=== PATIENT | female | born 1945 | race Caucasian/White ===

== ENCOUNTER 2025-09-08 13:05 | Emergency (ER) | payer MEDICARE, BC, SELFPAY ==
[2025-09-08 13:20] VITALS: BP 125/52; PULSE 72; RESP 18; TEMP 36.5; O2SAT 98; BMI 20.7
--- NOTE | 2025-09-08 13:30 | XR_ITS ---
CLINICAL INDICATION: Chest Pain TECHNIQUE: XR chest 2V COMPARISON: Chest radiograph 10/25/2023 FINDINGS: The cardiomediastinal silhouette is within normal limits of size. Aortic atherosclerosis is present above and below the diaphragm.. Patchy retrocardiac opacification is visualized on the frontal view. There may be very small bilateral pleural effusions as well, blunting the posterior costophrenic sulci. No diffuse pulm edema pattern. No mass. No pneumothorax. Multifocal degenerative changes with otherwise no evidence for recent fracture or aggressive lesion. IMPRESSION: Left retrocardiac opacification could be due to aspiration or pneumonia. Possible very small bilateral pleural effusions. Short-term follow-up chest radiography or alternatively follow-up chest CT can be obtained for further evaluation. - This report was generated utilizing speech recognition software. -
--- NOTE | 2025-09-08 13:30 | EKG_ITS ---
[facility] Test Date: 2025-09-08 Pat Name: HERIBERTO BAH Department: Room: - Gender: Female Office Asst: : 1945 Requested By: Juaquin Hernandez (JERRI) Order Number: [id number] Reading MD: Juaquin Hernandez ([employer]IC[employer]ER) Measurements Intervals [place] Rate: 67 P: 38 AL: 149 QRS: -39 QRSD: 130 T: -3 QT: 404 QTc: 429 Interpretive Statements SINUS RHYTHM LEFT AXIS DEVIATION [QRS AXIS < -30] RIGHT BUNDLE BRANCH BLOCK [120+ ms QRS DURATION, UPRIGHT V1, 40+ ms S IN I/aVL/V4/V5/V6] MINIMAL VOLTAGE CRITERIA FOR LVH, CONSIDER NORMAL VARIANT [MEETS CRITERIA IN ONE OF: R(aVL), S(V1), R(V5), R(V5/V6)+S(V1)] Compared to ECG 12/18/2023 17:46:05 Left-axis deviation now present Right bundle-branch block now present Sinus bradycardia no longer present Intraventricular conduction delay no longer present Myocardial infarct finding no longer present /store/S0/[id number]/ecg/[id number].pdf
--- NOTE | 2025-09-08 13:30 | PD.EDRME ---
Rapid Medical Screening Exam RME Arrival date/time: 09/08/25 13:05 80-year-old female presents the emerged from today stating she was sent by Dr. Solares for low hemoglobin Chief Complaint: General Adult/Misc Complain Vital signs: Vital Signs Temperature 97.7 F 09/08/25 13:20 Pulse Rate 72 09/08/25 13:20 Respiratory Rate 18 09/08/25 13:20 Blood Pressure 125/52 L 09/08/25 13:20 Pulse Oximetry (%) 98 09/08/25 13:20 Oxygen Delivery Method Room Air 09/08/25 13:20 Vital signs reviewed by provider: Yes Exam: Clinically patient well-appearing does not appear ill or toxic Patient does appear to be pale consistent with low hemoglobin Clinical Impression: Lab work imaging ordered
[2025-09-08 14:30] LABS: INR 1.0 (0.9-1.3); Partial Thromboplastin Time 23.3 Seconds (22.0-36.0); Prothrombin Time 10.3 Seconds (9.0-12.2)
[2025-09-08 15:14] LABS: Alanine Aminotransferase 34 U/L (10-49); Albumin, Serum 4.1 gm/dL (3.4-4.8); Albumin/Globulin Ratio 2.3 (1.2-2.2); Alkaline Phosphatase 115 U/L (46-116); Anion Gap 9 (7-16); Aspartate Amino Transferase 66 U/L (0-34); B-Type Natriuretic Peptide 898 pg/mL (0-100); BUN/Creatinine Ratio 14 Ratio (12-20); Bilirubin,Total 0.3 mg/dL (0.3-1.2); Blood Urea Nitrogen 27 mg/dL (9-23); Calcium 9.6 mg/dL (8.3-10.6); Calcium (Corrected) 9.6 mg/dL (8.5-10.1); Carbon Dioxide 23.7 mMol/L (20.0-31.0); Chloride 103 mMol/L (98-107); Creatinine (Component) 1.9 mg/dL (0.6-1.3); Estimated Creatinine Clearance 19.2 mL/min (>60); Globulin 1.8 gm/dL (2.3-3.5); Glucose 151 mg/dL (74-106); Magnesium 2.2 mg/dL (1.6-2.6); Osmolality,Calculated 280 (275-295); Potassium 5.4 mMol/L (3.4-5.1); Sodium 136 mMol/L (136-145); Total Protein 5.9 gm/dL (5.7-8.2); eGFR 26 See Note
[2025-09-08 15:18] LABS: Troponin I 0.105 ng/mL (0.0-0.045)
[2025-09-08 15:35] LABS: Basophils # (Auto) 0.0 Thou/mm3 (0.0-0.2); Basophils % (Auto) 0 % (0-2.5); Eosinophils # (Auto) 0.1 Thou/mm3 (0.0-0.5); Eosinophils % (Auto) 1 % (0-10); Hematocrit 23.6 % (36.0-46.0); Immature Granulocytes Auto 0.04 Thou/mm3 (0.00-0.00); Lymphocytes # (Auto) 1.2 Thou/mm3 (1.0-4.8); Lymphocytes % (Auto) 14 % (10-50); Mean Corpuscular HGB Conc 33.5 g/dl (31.0-37.0); Mean Corpuscular Hemoglobin 32.5 pg (25.0-35.0); Mean Corpuscular Volume 97 fL (80-100); Monocytes # (Auto) 1.2 Thou/mm3 (0.0-0.8); Monocytes % (Auto) 13 % (0-12); Neutrophils # (Auto) 6.4 Thou/mm3 (1.8-7.7); Neutrophils % (Auto) 71 % (37-80); Nucleated Red Blood Cell # 0.00 Thou/mm3 (0.00-0.00); Nucleated Red Blood Cell % 0 /100 WBC (0); Platelet Count 220 Thou/mm3 (140-440); RDW Standard Deviation 53.9 fL (36.4-46.3); Red Blood Count 2.43 Miln/mm3 (4.00-5.20); White Blood Count 8.9 Thou/mm3 (3.6-11.0)
[2025-09-08 15:36] LABS: Hemoglobin 7.9 g/dL (12.0-16.0)
--- NOTE | 2025-09-08 20:58 | EDNOTE_ITS ---
ED General RME/HPI General Chief complaint: General Adult/Misc Complain Stated complaint: HGB 6.6; SENT FOR BLOOD TRANSFUSION BY DR. BEAR Time Seen by Provider: 09/08/25 20:59 Arrival date/time: 09/08/25 13:05 RME / HPI RME / HPI narrative: 09/08/25 13:05 80-year-old female presents the emerged from today stating she was sent by Dr. Bear for low hemoglobin Dr. Huff?s Main ED Evaluation: 80yo female with a history of HTN, CAD s/p PCI, history of renal cell carcinoma s/p right nephrectomy on oral chemotherapy pills presents to the ED after being sent over by Dr. Bear. Patient states she was sent over due to her hemoglobin being low. Patient reports feeling generally weak and fatigued. Patient denies any chest pain, shortness of breath, or any other associated symptoms. Related Data Home Medications ?Medication ?Instructions ?Recorded ?Confirmed aspirin 81 mg tablet,delayed 81 mg PO QDAY 03/17/20 release metoprolol succinate 100 mg 100 mg PO QDAY 03/17/20 tablet,extended release 24 hr cabozantinib 20 mg tablet 20 mg PO QDAY 05/30/2212/18 (Cabometyx) ergocalciferol (vitamin D2) 400 400 unit PO HS 2 12/18/23 unit capsule lorazepam 1 mg tablet 1 mg PO BID PRN Anxiety 05/0612/18/23 calcitriol 0.25 mcg capsule See Rx Instructions .Route .COMPLEX 10/26/23 12/18/23 levothyroxine 50 mcg tablet 50 mcg PO EVERYOTHERDAY 12/18/23 Allergies Allergy/AdvReac Type Severity Reaction Status Date / Time Penicillins Allergy Severe Anaphylaxis Verified 09/08/25 13:07 metformin Allergy Intermediate Rash Verified 09/08/25 13:07 Review of Systems Review of Systems Systems Reviewed: All systems reviewed, normal except as documented ED Exam Narrative Physical exam: Generally patient is alert frail appearing 80-year-old female in no obvious distress, heart regular rate and rhythm, lungs clear to auscultation equal bilaterally, abdomen soft bowel sounds present nondistended nontender, skin is cool pale and dry, neurologic exam shows no focal motor deficits. No ataxia. [place] Coma Scale is 15. Course Quality Measures none Orders Category Date Time Status EKG (ED ONLY) *Do not use* NOW Care 09/08/25 13:30 Completed EKG (ED Only) Stat Exams 09/08/25 13:30 Draft XR chest 2V Stat Exams 09/08/25 13:30 Completed B-Type Natriuretic Peptide Stat Lab 09/08/25 14:00 Completed BMP [Basic Metabolic Panel] Stat Lab 09/08/25 21:22 Completed CBC Stat Lab 09/08/25 14:00 Completed Comprehensive Metabolic Panel Stat Lab 09/08/25 14:00 Completed Magnesium Stat Lab 09/08/25 14:00 Completed Partial Thromboplastin Time Stat Lab 09/08/25 14:00 Completed Prothrombin Time with INR Stat Lab 09/08/25 14:00 Completed Troponin I Stat Lab 09/08/25 14:00 Completed Troponin I Stat Lab 09/08/25 21:22 Completed Type and Screen Stat Lab 09/08/25 14:00 Completed Vital Signs Vital signs: Vital Signs Temperature 97.7 F 09/08/25 13:20 Pulse Rate 72 09/08/25 13:20 Respiratory Rate 18 09/08/25 13:20 Blood Pressure 125/52 L 09/08/25 13:20 Pulse Oximetry (%) 98 09/08/25 13:20 Oxygen Delivery Method Room Air 09/08/25 13:20 Discharge Plan Plan Patient Disposition: HOME (Self Care) Prescriptions/Referrals Prescriptions/Med Rec: No Action metoprolol succinate 100 mg tablet extended release 24 hr 100 mg PO QDAY aspirin 81 mg tablet,delayed release (DR/EC) 81 mg PO QDAY lorazepam 1 mg Tablet 1 mg PO BID PRN (Reason: Anxiety) ergocalciferol (vitamin D2) 400 unit Capsule 400 unit PO HS Cabometyx 20 mg Tablet 20 mg PO QDAY Rx Instructions: PATIENT STOPPED TAKING BECAUSE OF ANTIBIOTICS levothyroxine 50 mcg Tablet 50 mcg PO EVERYOTHERDAY Rx Instructions: alternates taking 25 mcg one day and then 50 mcg the next day calcitriol 0.25 mcg Capsule See Rx Instructions .ROUTE .COMPLEX Rx Instructions: 0.25 mcg orally 3 times weekly Referrals: Thu Laguna PA-C [Primary Care Provider, Family Practice] - In 1 week Problem List Clinical Impression: Anemia Patient/Caregiver Discharge Instructions Education Materials: ED Anemia Type Not Specified Additional Instructions: Keep your follow-up appointments. Return to ER as needed or if condition worsens. Continue current medications. Print Language: Gambian Stand Alone Forms: Vivienne Award Info., Patient Portal Info Letter MDM Narrative MDM hospital course (for use when minimal MDM required): Scribe Attestation: 09/08/25 - Archana Roper am scribing for and in the presence of Dr. Huff. Hemoglobin was 7.9. Troponin was 0.105 repeated showed negligible change at 0.125. EKG is nonischemic. Patient denies any chest pain pressure tightness or heaviness. I do not believe this patient to be suffering from a type II NC. Original potassium was 5.4 repeated it was 4.9 which is normal. Patient is not in need of a blood transfusion at this time. She will be discharged in stable condition. Keep her follow-up appointment with her oncologist Dr. Hickman in [place]. 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 Bear. Clinical Information Provided by: patient Medical Records reviewed [facility] (Per chart review, patient was admitted here on 12/18/23 for acute hyponatremia.) Meds/Rx considered, not ordered None Labs/Rad/Tests considered, not ordered None Chronic Illness/Social Conditions Explain: Hx HTN, CAD s/p PCI, history of renal cell carcinoma s/p right nephrectomy Labs Labs: interpreted by [facility] Imaging interpretation: interpreted by [facility] Interpretation(s): [facility] Report Signed Patient: HERIBERTO BAH [facility]. Record#: [id number] Birthdate: 1945 Age/Sex: 80 / F Location: [facility] Attending Dr: Ordering Physician: Mary FREID)Juaquin NP Date of Service: 09/08/25 Procedure(s): XR chest 2V Accession Number(s): [id number] cc: Mary FRIED)Juaquin NP; David Ardon DO~ CLINICAL INDICATION: Chest Pain TECHNIQUE: XR chest 2V COMPARISON: Chest radiograph 10/25/2023 FINDINGS: The cardiomediastinal silhouette is within normal limits of size. Aortic atherosclerosis is present above and below the diaphragm.. Patchy retrocardiac opacification is visualized on the frontal view. There may be very small bilateral pleural effusions as well, blunting the posterior costophrenic sulci. No diffuse pulm edema pattern. No mass. No pneumothorax. Multifocal degenerative changes with otherwise no evidence for recent fracture or aggressive lesion. IMPRESSION: Left retrocardiac opacification could be due to aspiration or pneumonia. Possible very small bilateral pleural effusions. Short-term follow-up chest radiography or alternatively follow-up chest CT can be obtained for further evaluation. - This report was generated utilizing speech recognition software. - Dictated By: David Ardon DO Signed By: <Electronically signed by David Ardon DO in [place]> 09/08/25 1347 Medication Administration(s) none Diagnosis Differential Diagnosis ED Complaint MDM: See MDM
[2025-09-08 21:17] VITALS: BP 174/91; PULSE 73; RESP 18; TEMP 36.4; O2SAT 98
[2025-09-08 22:02] LABS: Anion Gap 10 (7-16); BUN/Creatinine Ratio 16 Ratio (12-20); Blood Urea Nitrogen 31 mg/dL (9-23); Calcium 9.8 mg/dL (8.3-10.6); Carbon Dioxide 23.7 mMol/L (20.0-31.0); Chloride 103 mMol/L (98-107); Creatinine (Component) 1.9 mg/dL (0.6-1.3); Estimated Creatinine Clearance 19.2 mL/min (>60); Glucose 117 mg/dL (74-106); Osmolality,Calculated 281 (275-295); Potassium 4.9 mMol/L (3.4-5.1); Sodium 137 mMol/L (136-145); eGFR 26 See Note
[2025-09-08 22:05] LABS: Troponin I 0.125 ng/mL (0.0-0.045)
== END 2025-09-08 22:24 | disposition home or self-care (01) ==
PROVIDERS: Nurse Practitioner Primary Care; Emergency Provider Emergency Medicine; PCP Physician Assistant
DX: R07.9 Chest pain, unspecified (principal); D64.9 Anemia, unspecified; I10 Essential (primary) hypertension; E87.1 Hypo-osmolality and hyponatremia; I25.10 Atherosclerotic heart disease of native coronary artery without angina pectoris
CPT/HCPCS: 36415; 71046; 80048; 80053; 83735; 83880; 84484; 85025; 85610; 85730; 86850; 86900; 86901; 93005; 99283

== ENCOUNTER 2025-10-12 16:19 | Inpatient (IN) | payer MEDICARE, BC, SELFPAY ==
[2025-10-12] VITALS (8 sets, daily range): BP systolic 141–220; BP diastolic 78–133; PULSE 55–111; RESP 15–94; TEMP 35.9–36.8; O2SAT 99–100; BMI 21.0; BMI 20.7
--- NOTE | 2025-10-12 16:41 | XR_ITS ---
Examination: CT cervical spine without contrast 2-D sagittal reconstructions 2-D coronal reconstructions 3-D reconstructions. Exam date and time: October 12, 2025, 1734 hours INDICATIONS: Onset neck pain today CTDI:vol (mGy) 12.9 DLP: (mGycm) 259 Technique: Multiple 2 mm axial sections of the cervical spine have been obtained. The coronal and sagittal reconstructions have been obtained. 3-D reconstructions have been obtained. Low dose protocols were performed. One or more of the following dose reduction techniques were used; automated exposure control, adjustment of the mA and/or KV according to patient size, use of iterative reconstruction technique. Findings: Axial sections demonstrate intact base of the skull. C1 exhibit satisfactory relationship to the odontoid. No acute cervical vertebral body fracture seen. Alignment posterior spinous processes satisfactory. Significant osteopenia Moderate to advanced degenerative disc disease C5-C6, C6-C7 C5-C6 4 mm left paracentral osteophyte disc complex, moderate bilateral neuroforaminal stenosis C6-C7 bilateral uncinate process hypertrophy with moderate to advanced bilateral neuroforaminal stenosis Impression: No acute cervical fracture. Moderate to advanced degenerative disc disease C5-C6, C6-C7 C5-C6 4 mm left paracentral osteophyte disc complex, moderate bilateral neural foraminal stenosis C6-C7 uncinate process hypertrophy with moderate to advanced bilateral neural foraminal stenosis
--- NOTE | 2025-10-12 16:41 | EDNOTE_ITS ---
ED Recheck Abnl Lab Rx-RME/HPI General Chief Complaint: General Adult/Misc Complain Stated Complaint: HIGH BP, TACHYDARDIA Time Seen by Provider: 10/12/25 16:59 Arrival date/time: 10/12/25 16:19 RME / HPI Description of abnormal result: See [facility] for Dr. Fuentes's HPI Documentation. Related Data Home Medications ?Medication ?Instructions ?Recorded ?Confirmed aspirin 81 mg tablet,delayed 81 mg PO HS 03/17/2007/30 release metoprolol succinate 100 mg 100 mg PO QDAY 03/17/20 tablet,extended release 24 hr cabozantinib 20 mg tablet 20 mg PO QDAY 05/30/2210/13 (Cabometyx) ergocalciferol (vitamin D2) 400 400 unit PO HS 2 10/13/25 unit capsule lorazepam 1 mg tablet 1 mg PO BID PRN Anxiety 05/0610/13/25 calcitriol 0.25 mcg capsule See Rx Instructions .Route .COMPLEX 10/26/23 10/13/25 levothyroxine 50 mcg tablet 50 mcg PO EVERYOTHERDAY 10/13/25 bumetanide 2 mg tablet 1 mg PO DAILY PRN edema 07/3010/13/25 ferrous sulfate 325 mg (65 mg 325 mg PO HS 10/13/25 iron) tablet hydralazine 25 mg tablet 25 mg PO BID 10/13/25 valsartan 160 mg tablet 160 mg PO DAILY 10/13/2507/30 vitamin B complex 1 tab PO DAILY 10/13/2507/30 Allergies Allergy/AdvReac Type Severity Reaction Status Date / Time Penicillins Allergy Severe Anaphylaxis Verified 10/12/25 16:22 metformin Allergy Intermediate Rash Verified 10/12/25 16:22 Review of Systems Review of Systems Systems Reviewed: All systems reviewed, normal except as documented Past Medical History Past Medical History CARDIAC: Positive Hypercholesterolemia, Edema and Hypertension RESPIRATORY: Positive Bronchitis and Pneumonia GASTROINTESTINAL: Positive Hepatitis, Gall Bladder Disease, Ulcer, Hemorrhoids, Gastroesophageal Reflux Disease and Obesity GENITOURINARY: Positive Renal Disease REPRODUCTIVE: Positive Endometriosis and Pelvic Inflammatory Disease MUSCULOSKELETAL: Positive Arthritis and Fractures ENDOCRINE: Positive Hypothyroidism HEMATOLOGIC: Positive Anemia PSYCHO/SOCIAL: Positive Depression and Anxiety OTHER HISTORY: Positive Hospitalization, Chemotherapy (CURRENTLY ON PILL), Chicken Pox, Measles, Mumps, Rubella ([place] Measles) and Cancer (KIDENY CANCERR X7 YEARS) Family History FAMILY HISTORY: Positive Family Psychiatric Problems, Family Respiratory Disorders, Family Cardiac Disorders, Family Cancer and Family Surgery Surgical History SURGICAL: Positive Cardiac Surgery, Coronary Stent (X2), Abdominal Surgery, N ephrectomy (RIGHT) and Hysterectomy ED Exam Narrative Physical exam: See MDM for Dr. Fuentes's Physical Exam Documentation. Course Quality Measures none Orders Category Date Time Status EKG (ED ONLY) *Do not use* NOW Care 10/12/25 16:42 Completed Saline [Insert IV] NOW Care 10/12/25 18:00 Active Straight [In and Out Catheter] X1 Care 10/12/25 18:[address] cervical spine wo con Stat Exams 10/12/25 16:[address] head/brain wo con Stat Exams 10/12/25 16:42 Completed EKG (ED Only) Stat Exams 10/12/25 16:42 Draft XR chest 1V portable Stat Exams 10/12/25 16:42 Completed Bilirubin,Direct Stat Lab 10/12/25 16:55 Completed CBC Stat Lab 10/12/25 16:55 Completed CMP [Comprehensive Metabolic Panel] Stat Lab 10/12/25 16:55 Completed D-Dimer Stat Lab 10/12/25 16:55 Completed Free T3 Stat Lab 10/12/25 16:55 Completed Free T4 (Free Thyroxine) Stat Lab 10/12/25 16:55 Completed Hemoglobin A1C [Glycohemoglobin w (eAG)] Stat Lab 10/12/25 16:55 Completed Magnesium Stat Lab 10/12/25 16:55 Completed TSH [Thyroid Stimulating Hormone] Stat Lab 10/12/25 16:55 Completed Troponin I Stat Lab 10/12/25 16:55 Completed Troponin I Stat Lab 10/12/25 19:17 Completed UA, C/S IF [Urinalysis, C/S if Indicated] Stat Lab 10/12/25 17:55 Completed Aspirin Chew Med 10/12/25 18:00 Discontinued 324 mg PO X1 ONE Metoprolol Tartrate [Lopressor] Med 10/12/25 16:41 Discontinued 50 mg PO X1 ONE cloNIDine HCL [Catapres] Med 10/12/25 16:41 Discontinued 0.3 mg PO X1 ONE Vital Signs Vital signs: Vital Signs Temperature 97.9 F 10/12/25 16:37 Pulse Rate 111 H 10/12/25 16:37 Respiratory Rate 18 10/12/25 16:37 Blood Pressure 220/98 H 10/12/25 16:37 Pulse Oximetry (%) 99 10/12/25 16:37 Oxygen Delivery Method Room Air 10/12/25 16:37 Recheck / Abnormal Lab / Rx MDM Narrative MDM Narrative:: This section includes all my notes and documentations, including HPI, PE, and ED course. Mehul Fuentes MD HPI: 80 y/o female with CAD, HTN, and Hypercholesterolemia here with elevated BP. PCP sent here from the office with SBP > 200. She has been compliant with her BP medications. About a month ago, metoprolol discontinued by PCP. No headache or dizziness. No speech or visual impairment. No chest pain or shortness of breath. No other complaints. ROS: All negative except as documented in HPI. Physical Exam: General: Alert and oriented. No acute distress when remaining still. High BP noted. Eyes: Conjunctivae and lids clear. ENT: No nasal congestion. Neck: Supple. No carotid bruit. No JVD. Heart: Tachycardia noted with regular rhythm. Lungs: No respiratory distress. Good air movement. No rhonchi, wheezing, rales. Abdomen: Soft and nontender. Normal bowel sounds. No distension. No rebound or guarding. Back: No CVA tenderness. Legs: No edema. Skin: Warm and dry. Neuro: Alert and oriented X 3. Cranial nerves II to XII grossly normal. No peripheral motor deficits. I reviewed all diagnostic test results: My interpretation of the EKG is: Sinus tachycardia (111 bpm) with nonspecific ST-T changes. My interpretation of the chest x-ray is: NAD. My review of the Head/Brain CT report is: No acute findings. My review of the C-Spine CT report is: NAD. Blood tests and urine tests remarkable for D-dimer 1610 troponin 0.203. At this point, diagnoses include: Hypertensive Emergency NSTEMI Treatment here included: Catapres 0.3 mg PO Lopressor 50 mg PO Aspirin 324 mg PO Patient remained stable. I discussed the case with our hospitalist. About the presentation and exam and diagnostics and treatments here. And need of further care in the hospital. Will accept the patient. Mehul Fuentes MD Patient data External records reviewed:: [facility] previous records (Reviewed prior ED records from 09/08/25. Patient was seen for Anemia.) Clinical information provided by:: patient Social determinants that could affect healthcare access:: none Patient has the following chronic illnesses:: Hypercholesterolemia, Edema, Hypertension, Hepatitis, Gall Bladder Disease, Ulcer, Hemorrhoids, Gastroesophageal Reflux Disease, Obesity, Renal Disease, Endometriosis and Pelvic Inflammatory Disease, Arthritis, Hypothyroidism, Anemia, Depression, and Anxiety How is presenting disease/condition affected by chronic disease/condition?: exacerbated by Evaluation data The following diagnostics were reviewed and interpreted by me:: lab results, radiology exam(s) and EKG tracing(s) (My interpretation of the EKG is: Sinus tachycardia (111 bpm) with nonspecific ST-T changes. Mehul Fuentes MD) Lab and/or radiology exams considered but not ordered:: None Interpretation Summary: I reviewed all diagnostic test results: My interpretation of the EKG is: Sinus tachycardia (111 bpm) with nonspecific ST-T changes. My interpretation of the chest x-ray is: NAD. My review of the Head/Brain CT report is: No acute findings. My review of the C-Spine CT report is: NAD. Blood tests and urine tests remarkable for D-dimer 1610 troponin 0.203. Medications / Prescriptions Medications or Prescriptions considered but not ordered:: None Medication administrations:: Medication Administration History Acetaminophen (Acetaminophen 325 Mg Tablet) 650 mg PO Q6H PRN PRN Reason: Fever >101.5 or pain 1-3 Stop: 11/11/25 21:13 Aspirin (Aspirin Ec 81 Mg Tabec) 81 mg PO QDAY HAYLIE Stop: 11/12/25 08:59 Last Admin: 10/13/25 09:00 Dose: 81 mg Documented By: TANIKA Atorvastatin Calcium (Atorvastatin Calcium 20 Mg Tablet) 80 mg PO HS [facility] Stop: 11/12/25 20:59 Hydralazine HCl (Hydralazine Hcl 25 Mg Tablet) 25 mg PO BID HAYLIE Stop: 11/12/25 08:59 Last Admin: 10/13/25 08:51 Dose: Not Given Documented By: TANIKA Non-Admin Reason: HOLD PER DR. ESPINOZA Heparin Sodium/Dextrose (Heparin In D5w Ivpb) 25,000 unit in 250 mls @ 6.161 mls/hr IV .Q24H HAYLIE; Protocol Stop: 10/26/25 22:59 Last Titration: 10/13/25 16:10 Dose: 7 units/kg/hr, 3.594 mls/hr Documented By: TANIKA Co-signed By: BEAR Titration: 10/13/25 08:32 Dose: 9 units/kg/hr, 4.621 mls/hr Documented By: TANIKA Co-signed By: BEAR Titration: 10/13/25 07:23 Dose: 0 units/kg/hr, 0 mls/hr Documented By: TANIKA Co-signed By: BEAR Admin: 10/13/25 00:12 Dose: 12 units/kg/hr, 6.161 mls/hr Documented By: CORTNEY Co-signed By: HEBER Levothyroxine Sodium (Levothyroxine Sodium 25 Mcg Tablet) 50 mcg PO ACBR [facility] Stop: 11/12/25 05:59 Last Admin: 10/13/25 05:41 Dose: 50 mcg Documented By: CORTNEY Lorazepam (Lorazepam 0.5 Mg Tablet) 1 mg PO BID PRN PRN Reason: Anxiety Stop: 10/18/25 08:59 Metoprolol Succinate (Metoprolol Succinate Xl 25 Mg Tabcr) 100 mg PO QDAY [facility] Stop: 11/12/25 08:59 Last Admin: 10/13/25 08:51 Dose: Not Given Documented By: TANIKA Non-Admin Reason: HOLD PER DR. ESPINOZA Ondansetron HCl (Ondansetron Inj 2 Mg/Ml Inj 2 Ml) 4 mg IVP Q6H PRN; Protocol PRN Reason: NAUSEA OR VOMITING Stop: 11/11/25 21:21 Sennosides (Senna/Docusate Sod 1 Tab Tablet) 1 tab PO QDAY PRN; Protocol PRN Reason: CONSTIPATION Stop: 11/12/25 00:34 Valsartan (Valsartan 80 Mg Tablet) 160 mg PO QDAY [facility] Stop: 11/12/25 08:59 Last Admin: 10/13/25 08:51 Dose: Not Given Documented By: TANIKA Non-Admin Reason: HOLD PER DR. ESPINOZA Discontinued Medications Aspirin (Aspirin 81 Mg Chew) 324 mg PO X1 ONE Stop: 10/12/25 18:01 Last Admin: 10/12/25 19:04 Dose: 324 mg Documented By: KENN Aspirin (Aspirin Ec 81 Mg Tabec) 81 mg PO HS [facility] Stop: 11/12/25 20:59 Atorvastatin Calcium (Atorvastatin Calcium 20 Mg Tablet) 80 mg PO X1 ONE Stop: 10/13/25 01:56 Last Admin: 10/13/25 02:38 Dose: 80 mg Documented By: CORTNEY Clonidine (Clonidine Hcl 0.1 Mg Tablet) 0.3 mg PO X1 ONE Stop: 10/12/25 16:42 Last Admin: 10/12/25 17:43 Dose: 0.3 mg Documented By: KENN Heparin Sodium (Porcine) (Heparin Sod Inj 5000 Unit/Ml Vial) 5,000 unit SC Q12H [facility] Stop: 10/26/25 21:29 Heparin Sodium (Porcine) (Heparin Sod Inj 5000 Unit/Ml Vial) 3,000 unit IV X1 ONE; Protocol Stop: 10/12/25 22:51 Last Admin: 10/13/25 00:11 Dose: 3,000 unit Documented By: CORTNEY Co-signed By: HEBER Heparin Sodium (Porcine) (Heparin Sod Inj 5000 Unit/Ml Vial) 3,000 unit IV X1 ONE; Protocol Stop: 10/13/25 00:16 Last Admin: 10/13/25 00:20 Dose: Not Given Documented By: CORTNEY Non-Admin Reason: Duplicate Medication on eMAR Magnesium Sulfate (Magnesium Sulfate Ivpb) 4 gm in 50 mls @ 12.5 mls/hr IV X1 ONE Stop: 10/13/25 05:53 Last Admin: 10/13/25 02:37 Dose: 12.5 mls/hr Documented By: CORTNEY Metoprolol Tartrate (Metoprolol Tartrate 25 Mg Tablet) 50 mg PO X1 ONE Stop: 10/12/25 16:42 Last Admin: 10/12/25 17:43 Dose: 50 mg Documented By: KENN Non-Formulary Medication (Cabometyx) 20 mg PO QDAY [facility] Stop: 11/12/25 08:59 Treatment here from me included: Catapres 0.3 mg PO Lopressor 50 mg PO Aspirin 324 mg PO Consultations Consultation(s) initiated? (list below): Yes Consultation #1 (Physician, Specialty, Details): I discussed the case with our hospitalist. About the presentation and exam and diagnostics and treatments here. And need of further care in the hospital. Will accept the patient. Time: 21:28 Diagnosis Recheck Differential Diagnosis: other (CVA, [place], hypertensive urgency, hypertensive emergency) Most likely diagnosis given after review of the tests above:: Hypertensive Emergency NSTEMI Admission Indicated Admission indicated?: indicated Explain why admission is indicated or not indicated:: Hypertensive Emergency NSTEMI Admission Request Was there a request for admission?: Yes Admission Attestation Admission request attestation: I discussed the case with our hospitalist. About the presentation and exam and diagnostics and treatments here. And need of further care in the hospital. Will accept the patient. Disposition Plan Disposition Plan: Admit Critical Care Time Critical Care Time Critical Care Time: Yes Total Critical Care Time (min.): 36 Attestation: Due to a high probability of clinically significant, life threatening deterioration, the patient required my highest level of preparedness to intervene emergently and I personally spent this critical care time directly and personally managing the patient. This critical care time included obtaining a history; examining the patient; ordering and review of studies; arranging urgent treatment with development of a management plan; evaluation of patient's response to treatment; frequent reassessment; and discussions with family and other providers. It was exclusive of separately billable procedures and treating other patients and teaching time. Mehul Fuentes MD Discharge Plan Plan Patient Disposition: Admit Acute Care w/in Hospital Problem List Clinical Impression: Hypertensive emergency, Non-ST elevation [place] (NSTEMI)
--- NOTE | 2025-10-12 16:42 | EKG_ITS ---
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: : [id number] Requested By: Mehul Espinoza Order Number: [id number] Reading MD: Mehul Espinoza Measurements Intervals [place] Rate: 111 P: 69 [place]: 154 QRS: -65 QRSD: 114 T: 68 QT: 302 QTc: 411 Interpretive Statements SINUS TACHYCARDIA WITH OCCASIONAL SUPRAVENTRICULAR PREMATURE COMPLEXES LEFT ATRIAL ENLARGEMENT [-0.15mV P-WAVE IN V1/V2] INCOMPLETE RIGHT BUNDLE BRANCH BLOCK [90+ ms QRS DURATION, TERMINAL R IN V1/V2, 40+ ms S IN I/aVL/V4/V5/V6] LEFT ANTERIOR FASCICULAR BLOCK [QRS AXIS <= -45, QR IN I, RS IN II] POSSIBLE LEFT VENTRICULAR HYPERTROPHY [VOLTAGE CRITERIA PLUS LAE OR QRS WIDENING] PROBABLE ANTEROLATERAL MYOCARDIAL INFARCTION , OF INDETERMINATE AGE [35 ms Q WAVE IN I/aVL/V3-V6] Compared to ECG 09/08/2025 13:35:42 Atrial abnormality now present Incomplete right bundle-branch block now present Left anterior fascicular block now present Myocardial infarct finding now present Sinus rhythm no longer present Left-axis deviation no longer present Right bundle-branch block no longer present /store/S0/[id number]/ecg/[id number].pdf
--- NOTE | 2025-10-12 16:42 | XR_ITS ---
PA upright chest film on 10/12/2025 at 4:52 p.m.: Comparison study 09/08/2025 INDICATION: Shortness of breath elevated blood pressure and tachycardia today FINDINGS: There is significant increase in the transverse transverse diameter of the heart shadow indicating prominent cardiomegaly. The thoracic aorta and the mediastinum appear normal as do the hilar regions. The right lung and pleural space are clear. On the left side, the previous film had shown a definite patchy infiltrate in the posterior basal segment of the left lower lobe behind the heart about two thirds of this area of abnormal infiltrative clear, there is still a nodular opacity seen posterior to the cardiac apex and unchanged. There is a multilocular expansile lytic lesion seen involving the right scapula. This expansile lytic lesion in the right scapula was present and it has remained unchanged in size and appearance dating back to a CT study on 12/18/2023 in addition, the patient's very significant cardiomegaly was also present on that chest CT, at which time the patient had a right basilar pleural effusion IMPRESSION: 1. There is very significant cardiomegaly stable and unchanged compared with a chest CT dated 12/18/2023 2 right lung and pleural space are clear 3 patchy infiltrate in the medial base of the left lower lobe seen on the most recent comparison chest film of 09/08/2025 has improved significantly, however there is still a nodular opacity seen in the left lower lobe posterior to the apex of the heart shadow this is unchanged dating back to 09/08/2025, however this was not present on the chest CT on 12/18/2023 4. I strongly recommend a PA and lateral x-ray of the chest in 3 months, with specific attention to this nodular density behind the apex of the left ventricle. If this is still present at that time, then a chest CT would be recommended for further evaluation. 5. There is a fairly large expansile lytic lesion involving the right scapula which was also present at the time of the chest CT of 12/18/2023. It does not appear to have changed in size or appearance, suggesting probable benign etiology, however this could represent a giant cell tumor, or other significant benign but aggressive bone lesions. A CT-guided core needle biopsy is recommended
--- NOTE | 2025-10-12 16:42 | XR_ITS ---
Examination: CT brain head without contrast. 2-D sagittal coronal reconstructions Date and time of exam: October 12, 2025, 1734 hours INDICATIONS: High blood pressure and head pain headaches today CTDI: vol (mGy): 47.0 DLP: (mGycm): 994 Technique: Multiple CT axial sections of the brain have been obtained, 5 mm slice thickness. Contrast has not been administered. 2-D sagittal, coronal reconstructions have been obtained Low dose protocols were performed. One or more of the following dose reduction techniques were used; automated exposure control, adjustment of the mA and/or KV according to patient size, use of iterative reconstruction technique. Findings: No significant ventricular enlargement. 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 No mass effect or midline shift Basal cisterns are not remarkable. Fourth ventricle is midline. Cranial vault intact. Impression: Negative for acute hemorrhage, mass effect or midline shift Advise clinical correlation and follow-up accordingly
[2025-10-12 17:23] LABS: Basophils # (Auto) 0.0 Thou/mm3 (0.0-0.2); Basophils % (Auto) 1 % (0-2.5); Eosinophils # (Auto) 0.1 Thou/mm3 (0.0-0.5); Eosinophils % (Auto) 2 % (0-10); Hematocrit 39.2 % (36.0-46.0); Hemoglobin 12.2 g/dL (12.0-16.0); Immature Granulocytes Auto 0.02 Thou/mm3 (0.00-0.00); Lymphocytes # (Auto) 1.4 Thou/mm3 (1.0-4.8); Lymphocytes % (Auto) 20 % (10-50); Mean Corpuscular HGB Conc 31.1 g/dl (31.0-37.0); Mean Corpuscular Hemoglobin 30.7 pg (25.0-35.0); Mean Corpuscular Volume 99 fL (80-100); Monocytes # (Auto) 0.5 Thou/mm3 (0.0-0.8); Monocytes % (Auto) 8 % (0-12); Neutrophils # (Auto) 4.8 Thou/mm3 (1.8-7.7); Neutrophils % (Auto) 70 % (37-80); Nucleated Red Blood Cell # 0.00 Thou/mm3 (0.00-0.00); Nucleated Red Blood Cell % 0 /100 WBC (0); Platelet Count 195 Thou/mm3 (140-440); RDW Standard Deviation 58.4 fL (36.4-46.3); Red Blood Count 3.97 Miln/mm3 (4.00-5.20); White Blood Count 6.9 Thou/mm3 (3.6-11.0)
[2025-10-12 17:35] LABS: Glucose Estimated Average 88 mg/dL (80-131); Hemoglobin A1C 4.7 % Hgb (4.8-6.0)
[2025-10-12 17:36] LABS: Alanine Aminotransferase 25 U/L (10-49); Albumin, Serum 4.4 gm/dL (3.4-4.8); Albumin/Globulin Ratio 1.5 (1.2-2.2); Alkaline Phosphatase 96 U/L (46-116); Anion Gap 11 (7-16); Aspartate Amino Transferase 54 U/L (0-34); BUN/Creatinine Ratio 16 Ratio (12-20); Bilirubin,Direct 0.2 mg/dL (0.0-0.3); Bilirubin,Total 0.8 mg/dL (0.3-1.2); Blood Urea Nitrogen 23 mg/dL (9-23); Calcium 9.7 mg/dL (8.3-10.6); Calcium (Corrected) 9.7 mg/dL (8.5-10.1); Carbon Dioxide 25.1 mMol/L (20.0-31.0); Chloride 103 mMol/L (98-107); Creatinine (Component) 1.4 mg/dL (0.6-1.3); Globulin 3.0 gm/dL (2.3-3.5); Glucose 108 mg/dL (74-106); Magnesium 1.9 mg/dL (1.6-2.6); Osmolality,Calculated 282 (275-295); Potassium 4.6 mMol/L (3.4-5.1); Sodium 139 mMol/L (136-145); Thyroid Stimulating Hormone 6.12 uIU/mL (0.55-4.78); Total Protein 7.4 gm/dL (5.7-8.2); eGFR 38 See Note
[2025-10-12 17:38] LABS: Troponin I 0.203 ng/mL (0.0-0.045)
--- NOTE | 2025-10-12 17:40 | PC.NURSE ---
[place] FROM LAB CALLED, PT'S TROP .203. RESULTS PLACED IN COMMENTS FOR PROVIDER TO SEE.
[2025-10-12] MEDS: METOPROLOL TARTRATE 25 MG TABLET 50 MG PO (17:43)
[2025-10-12 18:32] LABS: Collection Type, Urine Clean Catch
[2025-10-12 18:35] LABS: Bilirubin,Urine Negative (Negative); Blood,Urine Negative (Negative); Clarity,Urine Clear (Clear/Hazy); Color,Urine Yellow (Lt Yel-Yel); Culture Indicated,Urine Not Indicated; Glucose, Urine Negative (Negative); Hyaline Casts,Urine < 1 /hpf (0-1); Ketones,Urine Trace (Negative); Leukocyte Esterase,Urine Negative (Negative); Nitrite,Urine Negative (Negative); PH,Urine 6.0 (5.0-7.0); Protein,Urine 3+ (Neg - Trace); RBC,Urine 5 /hpf (0-3); Specific Gravity,Urine 1.030 (1.001-1.035); Squamous Epithelial Cell,Urine 1 /hpf (0-5); Urobilinogen,Urine 2.0 mg/dL (0.0-1.0); WBC,Urine 6 /hpf (0-5)
[2025-10-12 18:56] LABS: D-Dimer 1610 ng/mL (<600)
[2025-10-12] MEDS: ASPIRIN 81 MG CHEW 324 MG PO (19:04)
[2025-10-12 19:55] LABS: Troponin I 1.606 ng/mL (0.0-0.045)
[2025-10-12 21:09] LABS: Free T3 3.3 pg/mL (2.3-4.2); Free T4 (Free Thyroxine) 1.60 ng/dL (0.89-1.76)
--- NOTE | 2025-10-12 21:09 | ESHP_ITS ---
<Statement entered by Gonzales Fonseca MD - 10/13/25 02:10> A 80-year-old female with significant past medical history of hypertension, CAD s/p PCI, renal cell carcinoma status post right nephrectomy, stage IV metastatic disease following with heme oncologist, Dr. Hickman in [place], CKD following with Dr Solares, anemia presented to the hospital as she was referred by her PCP in view of elevated blood pressure which was noted on regular visit, SBP around 200 mmHg. Patient denies chest pain, shortness of breath, epigastric pain, any other associated symptoms. Reported that she is compliant with all her medications and took even on the morning of day of admission. Vitals at the time of admission are significant for blood pressure 220/98 mmHg, pulse rate 111 bpm. Labs at the time of admission are significant for creatinine 1.4, troponin 0.2 that later up trended to 1.6. Chest x-ray showed mild cardiomegaly and lytic lesion on the right scapula from her metastatic cancer. EKG showed normal sinus rhythm, tachycardia, ST elevation in aVR, T wave inversions in V1, V2. Admitted in the hospital for NSTEMI, likely type I in the setting of extensive history of CAD. Ordered echocardiogram. Consulted can cleaner, Dr. Schwartz and he recommended heparin drip, aspirin. Will continue to trend troponins and EKG changes. I have personally seen and examined the patient, agree with residents assessment and plan Patient plan of care was discussed with the attending physician, Dr. Yemi Fonseca, PGY2 Documentation for date of: 10/12/25 HPI History of Present Illness Chief complaint: High blood pressure History of present illness: This patient is an 80-year-old female with a history of hypertension, hypothyroidism, CAD status post stents x 2 (patient follows with Dr. Schwartz in [place]), renal cell carcinoma status post right nephrectomy with mets to right scapula/ribs/anterior iliac bones (patient follows Dr. Solares for nephrology and Dr. Hickman in [place] for hematology oncology) who presents to [facility] ED after being told that she had very high blood pressure by her PCP. Patient was admitted for management of NSTEMI. The patient stated that she takes her blood pressure at home usually in the mornings and has noticed that over the past week, she has been having elevated blood pressure readings. The only change that the patient is aware of is that she recently hurt her hips because she stepped on the stairs wrong and still remains sore. The patient states that normally she only takes her home valsartan if SBP is over 130, however she has been taking it every day for the past week and still remains hypertensive. Today she went to her PCP and was told that her blood pressure was over the 200s in SBP and was told to go to [facility] ED for further management. The patient denies any symptoms at this time other than feeling a bit sore at her hips. The patient denies any fevers, chest pain, shortness of breath, abdominal pain, and dysuria. The patient does note that she constantly has cold intolerance, and did note that she has not had a change in her levothyroxine dose for about 2 years and she is not sure when her last TSH evaluation was done. According to the patient, her renal cell carcinoma is stable and the only medication that she takes is Cabometyx for remission of her malignancy. She has not had any recent sessions of chemotherapy or radiation therapy. The patient is also aware of a lung spot that has been unchanged for months with outpatient monitoring. ED course: Initial vitals significant for blood pressure of 220/98 and heart rate of 111. Initial labs significant for creatinine of 1.4, AST of 54, troponin of 0.203 which increased to 1.606, TSH of 6.12 (with T4 and T3 within normal limits), and urinalysis showing 3+ protein, 5 RBC, and 6 WBC. Initial EKG shows ST elevation in aVR. CT head and cervical spine ordered, chest x-ray also ordered. In ED, patient was given aspirin 324, metoprolol tartrate 50 mg, and clonidine 0.3 mg. Past Surgical History: Appendectomy, hysterectomy, cataract removal Current Medication(s): Pending med rec Allergies (w/ Reactions): Metformin (rash) and penicillin (wheals and shortness of breath) Family History: Mother had heart disease and uterine cancer Alcohol Intake: Patient denies Tobacco/Vape Use: Patient denies Other Drug Use: Patient denies Recent Travel History: Patient denies Recent sick contacts: Patient denies Review of Systems Review of Systems Systems Reviewed: All systems reviewed, normal except as documented Exam Vital Signs Temp Pulse Resp BP Pulse Ox O2 Del Method 98.1 F 58 L 16 141/78 H 100 Room Air 10/12/25 19:27 10/12/25 19:27 10/12/25 19:27 10/12/25 19:27 10/12/25 19:27 10/12/25 19:27 Narrative Exam Physical Exam: General: Alert, no acute distress. Skin: Cool, dry, intact. Head: Normocephalic, atraumatic. Eye: Normal conjunctiva, PERRL. Throat: Oral mucosa dry. No obvious lesions in oropharynx. Cardiovascular: Regular rate and rhythm, no murmur, +S1/S2. Respiratory: Lungs are clear to auscultation, respirations unlabored, no crackles, no wheezing. Gastrointestinal: Soft, nontender, non-distended. No guarding or rebound tenderness. Extremities: No edema, no cyanosis, no clubbing. 2+ radial pulse bilaterally, 2+ pedal pulse bilaterally. Neuro: No focal deficits observed. Conversant, moving all extremities. No overt cerebellar signs/incoordination. Psychiatric: Cooperative, appropriate affect. Results: Labs 10/13/25 06:15 10/13/25 06:15 Labs: Short CBC 10/12/25 Range/Units 16:55 WBC 6.9 (3.6-11.0) Thou/mm3 Hgb 12.2 (12.0-16.0) g/dL Hct 39.2 (36.0-46.0) % Plt Count 195 (140-440) Thou/mm3 BMP 10/12/25 16:55 Sodium 139 Potassium 4.6 Chloride 103 Carbon Dioxide 25.1 BUN 23 Creatinine 1.4 H Glucose 108 H Calcium 9.7 Cardiac Enzymes 10/12/25 10/12/25 Range/Units 16:55 19:17 Troponin I 0.203 H* 1.606 H* D (0.0-0.045) ng/mL Liver Function 10/12/25 Range/Units 16:55 Total Bilirubin 0.8 (0.3-1.2) mg/dL Direct Bilirubin 0.2 (0.0-0.3) mg/dL AST 54 H (0-34) U/L ALT 25 (10-49) U/L Alkaline Phosphatase 96 (46-116) U/L Albumin 4.4 (3.4-4.8) gm/dL Urine 10/12/25 Range/Units 17:55 Urine Color Yellow (Lt Yel-Yel) Urine Clarity Clear (Clear/Hazy) Urine pH 6.0 (5.0-7.0) Ur Specific Crawford 1.030 (1.001-1.035) Urine Protein 3+ A (Neg - Trace) Urine Glucose (UA) Negative (Negative) Quality Measures Quality Measures VTE prophylaxis Advance care planning discussed with:: patient Medications Home Medications and Allergies Home Medications ?Medication ?Instructions ?Recorded ?Confirmed ?Type aspirin 81 mg tablet,delayed 81 mg PO HS 03/17/2007/30 History release metoprolol succinate 100 mg 100 mg PO QDAY 03/17/20 History tablet,extended release 24 hr cabozantinib 20 mg tablet 20 mg PO QDAY 05/30/2210/13 History (Cabometyx) ergocalciferol (vitamin D2) 400 400 unit PO HS 2 10/13/25 History unit capsule lorazepam 1 mg tablet 1 mg PO BID PRN Anxiety 05/0610/13/25 History calcitriol 0.25 mcg capsule See Rx Instructions .Route .COMPLEX 10/26/23 10/13/25 History levothyroxine 50 mcg tablet 50 mcg PO EVERYOTHERDAY 10/13/25 History bumetanide 2 mg tablet 1 mg PO DAILY PRN edema 07/3010/13/25 History ferrous sulfate 325 mg (65 mg 325 mg PO HS 10/13/25 History iron) tablet hydralazine 25 mg tablet 25 mg PO BID 10/13/25 History valsartan 160 mg tablet 160 mg PO DAILY 10/13/2507/30 History vitamin B complex 1 tab PO DAILY 10/13/2507/30 History Allergies Allergy/AdvReac Type Severity Reaction Status Date / Time Penicillins Allergy Severe Anaphylaxis Verified 10/12/25 16:22 metformin Allergy Intermediate Rash Verified 10/12/25 16:22 Visit Medications Discontinued Medications Aspirin (Aspirin 81 Mg Chew) 324 mg PO X1 ONE Stop: 10/12/25 18:01 Last Admin: 10/12/25 19:04 Dose: 324 mg Clonidine (Clonidine Hcl 0.1 Mg Tablet) 0.3 mg PO X1 ONE Stop: 10/12/25 16:42 Last Admin: 10/12/25 17:43 Dose: 0.3 mg Metoprolol Tartrate (Metoprolol Tartrate 25 Mg Tablet) 50 mg PO X1 ONE Stop: 10/12/25 16:42 Last Admin: 10/12/25 17:43 Dose: 50 mg Assessment & Plan Plan This patient is an 80-year-old female with a history of hypertension, CAD status post stents x 2 (patient follows with Dr. Schwartz in [place]), renal cell carcinoma status post right nephrectomy with mets to right scapula/ribs/anterior iliac bones (patient follows Dr. Solares for nephrology and Dr. Hickman in [place] for hematology oncology) who presents to [facility] ED after being told that she had very high blood pressure by her PCP. Patient was admitted for management of NSTEMI. #NSTEMI, likely type I versus type II #History of CAD status post stents x 2 Patient presented without any symptoms but was incidentally found to have elevated troponins on ED evaluation. Patient does have a history of CAD status post stents x 2. Patient follows can cleaner Dr. Schwartz in [place] and takes aspirin 81 mg nightly at home. Diagnostic: Troponin initially 0.203, which increased to 1.606, and further increased to 2.528 Initial EKG on 10/[address] elevations in aVR, subsequent EKG similar to later on 10/12 unremarkable Treatment: Cardiology consulted, appreciate recommendations Per cardiology, treat as NSTEMI with heparin drip and aspirin Loading dose of aspirin 324 mg and metoprolol tartrate 50 mg one-time dose given in ED Heparin drip (10/13?) Resumed home aspirin 81 mg daily Keep potassium above 4 and magnesium above 2 Loading dose of atorvastatin 80 mg given 10/13 Resumed home metoprolol succinate 100 mg daily Will continue to trend troponin every 3 hours until downtrend Will hold the patient's home Cabometyx 20 mg daily until cleared by cardiology as this medication has patient to increase incidence of thrombotic events and hypertension/hypertensive crisis per FDA prescribing information warnings and precautions (5.3 and 5.4) #Hypertensive urgency #History of hypertension, primary Patient does have a history of hypertension and is on multiple antihypertensives at home. The patient does note that over the past week, ever since she hurt her hips, she has been having elevated blood pressure readings at home. Patient was told to seek care at [facility] ED after her PCP noted a SBP over 200 in the clinic. Treatment: Patient received clonidine 0.3 mg and metoprolol tartrate 50 mg in ED Resumed patient's home metoprolol succinate 100 mg daily, hydralazine 25 mg twice daily, and valsartan 160 mg daily (patient normally takes valsartan if SBP is over 130 at home) #CKD stage IIIb-IV Patient has a history of CKD stage IV and follows Dr Solares, nephrology, outpatient. 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 The patient does follow her toter Dr. Solares in [place] for management of this condition. Previous imaging has identified metastases to right scapula, ribs, and anterior iliac bones. Patient does follow Dr. Hickman in [place] for hematology oncology and only takes Cabometyx for management of this condition. Patient episode stable for several years and has not received any recent chemotherapy/immunotherapy infusion or radiation therapy treatments. Diagnostic: Chest x-ray on 10/12 does note fairly large expansile lytic lesion in the right scapula as the same size and appearance as identified on CT chest on Treatment: Will hold the patient's home Cabometyx 20 mg daily until cleared by cardiology as this medication has patient to increase incidence of thrombotic events and hypertension/hypertensive crisis per FDA prescribing information warnings and precautions (5.3 and 5.4) Patient to follow-up outpatient #Left lower lobe nodular opacity As noted on chest x-ray 10/12. Patient states that she is aware that she has a lung spot which has been present for months and the patient was told that it has been stable so far and we will plan to have less frequent imaging outpatient. Treatment: Patient to follow-up outpatient #Elevated AST AST noted to be elevated on admission, patient does seem to have chronically elevated AST without elevations of other LFTs. Possibly secondary to Cabometyx as it has been shown to increase LFTs. Treatment: Patient to follow-up outpatient #Degenerative disc disease, C5-C6, C6-C7 with #Bilateral neural foraminal stenosis As found on CT cervical spine 10/12. Patient did not complain of any neck pain on examination prior to admission. Patient does not have any new onset weakness or extremity pain suggestive of acute neural foraminal stenosis requiring neurosurgical intervention. Treatment: Patient to follow-up outpatient #History of hypothyroidism The patient takes levothyroxine at home for management of hypothyroidism, but notes that she feels cold intolerance constantly. The patient is not sure when the last time she has had her TSH evaluated but notes that she has not had a change in the dosage of her home levothyroxine for about two years. Diagnostic: On admission, TSH 6.12, free T4 1.60, and free T3 3.3 Treatment: Levothyroxine 50 mcg ACBR (patient takes 50 mcg every other day at home) Patient to follow up outpatient for possible subtherapeutic treatment of hypothyroidism DVT Prophylaxis: Heparin gtt GI Prophylaxis: N/A Bowel: Senokot PRN Diet: Patient requested full liquid, will place NPO at midnight Cordon: N/A Lines: PIV Antibiotics: N/A Code Status: FULL Reason for Hospitalization: NSTEMI Other Barriers to Discharge: Cardiology consult Patient plan of care was discussed with the senior resident Dr. Fonseca (PGY-2) and attending physician Dr. Yemi Ferreira, PGY1 Attending Provider Attestation/Addendum After examination of the patient and review of the clinical data I feel that this patient needs admission to the hospital for further treatment/evaluation. Plan of care discussed with patient and is in agreement. I Gio Bragg MD, attest that I was physically present for coello portions of evaluation, and examined patient, labs and imagings and plan of care were discussed with IM residents team, and I agree with the findings and plans documented above.
--- NOTE | 2025-10-12 21:23 | EKG_ITS ---
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1945 Requested By: Wilfrido Ferreira Order Number: [id number] Reading MD: Wilfrido Ferreira Measurements Intervals [place] Rate: 58 P: 50 NM: 161 QRS: -53 QRSD: 117 T: -25 QT: 433 QTc: 427 Interpretive Statements SINUS BRADYCARDIA POSSIBLE LEFT ATRIAL ENLARGEMENT [-0.1mV P-WAVE IN V1/V2] INCOMPLETE RIGHT BUNDLE BRANCH BLOCK [90+ ms QRS DURATION, TERMINAL R IN V1/V2, 40+ ms S IN I/aVL/V4/V5/V6] LEFT ANTERIOR FASCICULAR BLOCK [QRS AXIS <= -45, QR IN I, RS IN II] POSSIBLE LEFT VENTRICULAR HYPERTROPHY [VOLTAGE CRITERIA PLUS LAE OR QRS WIDENING] PROBABLE ANTEROLATERAL MYOCARDIAL INFARCTION , OF INDETERMINATE AGE [35 ms Q WAVE IN I/aVL/V3-V6] Compared to ECG 10/12/2025 16:43:34 Sinus tachycardia no longer present Myocardial infarct finding still present /store/S0/[id number]/[id number].pdf
[2025-10-12 22:44] LABS: Troponin I 2.528 ng/mL (0.0-0.045)
[2025-10-12 23:45] LABS: INR 1.0 (0.9-1.3); Partial Thromboplastin Time 26.2 Seconds (22.0-36.0); Prothrombin Time 10.7 Seconds (9.0-12.2)
[2025-10-13] VITALS (10 sets, daily range): BP systolic 134–199; BP diastolic 67–75; PULSE 47–83; RESP 13–99; TEMP 36.1–36.7; O2SAT 98–99; BMI 20.7; BMI 15.0
[2025-10-13] MEDS: HEPARIN SOD INJ 5000 UNIT/ML VIAL 3000 UNIT IV (00:11)
[2025-10-13] MEDS: Heparin/D5w 25K 250 ML Ivpb 25,000 UNIT/250 ML BAG 6.161 UNIT IV (00:12)
[2025-10-13 01:40] LABS: Troponin I 2.716 ng/mL (0.0-0.045)
--- NOTE | 2025-10-13 02:09 | ECHO_ITS ---
Patient Info Name: Gareth Gonzalez Age: 80 years : 1945 Gender: Female Ht: 157 cm Wt: 51 kg BSA: 1.50 m2 BP: 168 / 74 mmHg HR: 51 bpm Exam Date: 10/13/2025 7:59 AM Admit Date: 10/12/2025 Site: [facility] Room Number: [id number] Patient Status: I Exam Type: CA echo doppler complete Boiler Coverer: Janet Real Ordering Physician: Gonzales Fonseca Study Info Indications NSTEMI - Primary Location: S2NX Left Ventricular Outflow Tract Name Value Normal LVOT 2D LVOT Diameter 1.5 cm LVOT Doppler LVOT Peak Velocity 100 cm/s LVOT Mean Gradient 2 mmHg LVOT VTI 26 cm LVOT VTI/AV VTI Ratio 0.8 LVOT Stroke Volume 45 ml Pulmonic Valve Name Value Normal PV Doppler PV Peak Velocity 99 cm/s Mitral Valve Name Value Normal MV Doppler MV Mean Gradient 2 mmHg MV Decel [place] 156 cm/s2 MV PHT 114 ms MV Area (PHT) 1.9 cm2 4.0-5.0 MV Area (Cont Eq VTI) 0.9 cm2 MV Diastolic Function MV E Peak Velocity 62 cm/s MV A Peak Velocity 107 cm/s MV E/A 0.6 MV Annular TDI MV Septal e' Velocity 4.1 cm/s MV E/e' (Septal) 14.9 MV Lateral e' Velocity 7.7 cm/s MV E/e' (Lateral) 8.0 MV e' Average 5.93 cm/s MV E/e' (Average) 11.4 Tricuspid Valve Name Value Normal TV Regurgitation Doppler TR Peak Velocity 243 cm/s Estimated PAP/RSVP RA Pressure 3 mmHg <=5 PA Systolic Pressure 27 mmHg <36 RV Systolic Pressure 27 mmHg <36 TV Annular TDI TV Lateral Fela s' Velocity 13.8 cm/s >=9.5 Aortic Valve Name Value Normal AV 2D/MM AV Cusp Sep (MM) 1.1 cm AV Doppler AV Peak Velocity 123 cm/s AV Mean Gradient 3 mmHg AV VTI 33 cm AV Area (Cont Eq VTI) 1.4 cm2 >=3.0 AV Area (Cont Eq Johnnie) 1.4 cm2 AV DI (Johnnie) 0.81 AV Regurgitation 2D LVOT Area 1.8 cm2 Ventricles Name Value Normal LV Dimensions 2D/MM IVS Diastolic Thickness (2D) 1.1 cm 0.6-0.9 LVID Diastole (2D) 4.6 cm 3.8-5.2 LVIW Diastolic Thickness (2D) 1.1 cm 0.6-0.9 LVID Systole (2D) 3.1 cm 2.2-3.5 LVOT Diameter 1.5 cm LV Mass (2D Cubed) 181.22 g 67.00-162.00 LV Mass Index (2D Cubed) 121 g/m2 43-95 Relative Wall Thickness (2D) 0.48 <=0.42 IVS/LVIW Diastolic Thickness (2D) 1.00 0.00-1.50 LV Fractional Shortening/Ejection Fraction 2D/MM LV Fractional Shortening (2D) 33 % 27-45 LV EF (2D Teichholz) 61 % RV Dimensions 2D/MM TV Lateral Fela s' Velocity 13.8 cm/s >=9.5 Atria Name Value Normal LA Dimensions LA Volume (4C A-L) 50 ml LA Volume (BP A-L) 54 ml Left Ventricle Left ventricular chamber dimension is normal. Left ventricular systolic function is normal with visually estimated ejection fraction of 60-65%. There is mild concentric hypertrophy noted in the left ventricle. Left ventricular segmental wall motion is normal. There is grade I diastolic dysfunction in the left ventricle. Right Ventricle Right ventricular chamber dimension is normal. Right ventricular systolic function is normal. Left Atrium Left atrial chamber dimension is normal. Right Atrium Right atrial chamber dimension is normal. Aortic Valve The aortic valve is trileaflet. There is no aortic valve sclerosis. There is no aortic valve stenosis with a peak velocity of 123 cm/s, mean gradient of 3 mmHg, and aortic valve area of 1.4 cm2. There is mild aortic valve regurgitation. Pulmonic Valve The pulmonic valve is normal. There is no pulmonic valve stenosis. There is no pulmonic regurgitation. Mitral Valve The mitral valve has normal leaflets. There is no mitral valve stenosis. There is mild to moderate mitral valve regurgitation. Tricuspid Valve The tricuspid valve leaflets are normal. There is no tricuspid valve stenosis. There is mild to moderate tricuspid valve regurgitation. No pulmonary hypertension, estimated pulmonary arterial systolic pressure is 27 mmHg and systemic blood pressure of 168 mmHg in systole. Pericardium/Pleural The pericardium appears normal. There is small pericardial effusion with no tamponade. No pleural effusion visualized. Inferior Vena Cava Normal inferior vena cava with >50% collapse upon inspiration consistent with normal right atrial pressure, 3 mmHg. Aorta The aortic measurements are indexed to age and body surface area. The aortic root at the sinus of Valsalva is not well visualized. The prox ascending aorta is not well visualized. Summary 1. Left ventricle size is normal and systolic function is normal. Estimated ejection fraction is 60-65%. There is grade I diastolic dysfunction. There is mild concentric hypertrophy noted. 2. Right ventricle chamber size is normal and systolic function is normal. Estimated RVSP is 27 mmHg. 3. There is mild aortic valve regurgitation. 4. There is mild to moderate mitral valve regurgitation. 5. There is mild to moderate tricuspid valve regurgitation. 6. The left atrium is normal. The right atrium is normal. 7. Normal IVC with estimated RA pressure 3 mmHg. 8. Prior study from 10/26/2023. Report Signatures Finalized by Chelle Schwartz on 10/13/2025 05:00 PM
[2025-10-13 02:18] LABS: Cardiac Risk Estimate 2.6 RATIO (3.7-5.6); Cholesterol 189 mg/dL (132-200); HDL Cholesterol 72 mg/dL (40-60); LDL Cholesterol,Calculated 108 mg/dL (0-130); Triglycerides 47 mg/dL (30-150)
[2025-10-13] MEDS: Magnesium Sulfate 4 GM Ivpb 4 GM/50 ML BAG IV (02:37)
[2025-10-13] MEDS: ATORVASTATIN CALCIUM 20 MG TABLET 80 MG PO ×2 (02:38→20:41)
[2025-10-13] MEDS: LEVOTHYROXINE SODIUM 25 MCG TABLET 50 MCG PO (05:41)
[2025-10-13 06:45] LABS: Basophils # (Auto) 0.0 Thou/mm3 (0.0-0.2); Basophils % (Auto) 1 % (0-2.5); Eosinophils # (Auto) 0.1 Thou/mm3 (0.0-0.5); Eosinophils % (Auto) 3 % (0-10); Hematocrit 27.8 % (36.0-46.0); Hemoglobin 8.9 g/dL (12.0-16.0); Immature Granulocytes Auto 0.00 Thou/mm3 (0.00-0.00); Lymphocytes # (Auto) 1.2 Thou/mm3 (1.0-4.8); Lymphocytes % (Auto) 30 % (10-50); Mean Corpuscular HGB Conc 32.0 g/dl (31.0-37.0); Mean Corpuscular Hemoglobin 30.9 pg (25.0-35.0); Mean Corpuscular Volume 97 fL (80-100); Monocytes # (Auto) 0.4 Thou/mm3 (0.0-0.8); Monocytes % (Auto) 10 % (0-12); Neutrophils # (Auto) 2.2 Thou/mm3 (1.8-7.7); Neutrophils % (Auto) 56 % (37-80); Nucleated Red Blood Cell # 0.00 Thou/mm3 (0.00-0.00); Nucleated Red Blood Cell % 0 /100 WBC (0); Platelet Count 150 Thou/mm3 (140-440); RDW Standard Deviation 57.4 fL (36.4-46.3); Red Blood Count 2.88 Miln/mm3 (4.00-5.20); White Blood Count 4.0 Thou/mm3 (3.6-11.0)
[2025-10-13 06:54] LABS: Anion Gap 8 (7-16); BUN/Creatinine Ratio 19 Ratio (12-20); Blood Urea Nitrogen 23 mg/dL (9-23); Calcium 8.4 mg/dL (8.3-10.6); Carbon Dioxide 25.7 mMol/L (20.0-31.0); Chloride 105 mMol/L (98-107); Creatinine (Component) 1.2 mg/dL (0.6-1.3); Estimated Creatinine Clearance 29.1 mL/min (>60); Glucose 91 mg/dL (74-106); Magnesium 2.8 mg/dL (1.6-2.6); Osmolality,Calculated 281 (275-295); Potassium 4.6 mMol/L (3.4-5.1); Sodium 139 mMol/L (136-145); Triglycerides 35 mg/dL (30-150); eGFR 45 See Note
[2025-10-13 06:55] LABS: Troponin I 1.843 ng/mL (0.0-0.045)
[2025-10-13 06:56] LABS: Albumin, Serum 3.0 gm/dL (3.4-4.8); Calcium (Corrected) 9.2 mg/dL (8.5-10.1); Cardiac Risk Estimate 2.6 RATIO (3.7-5.6); Cholesterol 182 mg/dL (132-200); HDL Cholesterol 70 mg/dL (40-60); LDL Cholesterol,Calculated 105 mg/dL (0-130); Phosphorous 3.4 mg/dL (2.4-5.1)
[2025-10-13 07:17] LABS: INR 1.1 (0.9-1.3); Prothrombin Time 11.2 Seconds (9.0-12.2)
[2025-10-13 07:22] LABS: Partial Thromboplastin Time > 139.0 Seconds (22.0-36.0)
[2025-10-13] MEDS: ASPIRIN EC 81 MG TABEC PO (09:00)
--- NOTE | 2025-10-13 10:42 | ESPR_ITS ---
<Statement entered by Reinaldo Saini MD - 10/13/25 15:13> Overnight admission for NSTEMI and hypertensive emergency. Seen and examined at bedside and patient denies any chest discomfort or shortness of breath, headache, epistaxis, blurry vision. She was recently seen by Dr. Schwartz outpatient and no concerns at that time. Blood pressure stable at 155/67, pulse 55 and on room air. Allowing for permissive hypertension given initial BP of 220/98 for first 24 hours with goal less than 180/110. Hemoglobin noted to drop from 12.2 to 8.9. Troponins peaked at 2.7 and then down trended. LDL 105, HDL 70, TSH elevated at 6.12 but T4 normal, and A1c 4.7%. Will follow-up with cardiology recommendations. Currently on heparin drip, high intensity statin and aspirin. ----- Note reviewed and agree with care plan as documented. Please refer to the note below for further details. Plan discussed with attending physician Dr. Sally Saini MD PGY-2 Internal Medicine Documentation for date of: 10/13/25 Subjective Subjective Interval history: No acute events overnight. Patient has friends present in her room this morning. Patient has no complaints/concerns. Will follow up cardiology recs Patient's BP down to 130s, holding BP meds due decrease in BP since last night of 220s Patient's heparin drip was held this morning due to aptt >139 (goal of 60-85) Exam Vital Signs Temp Pulse Resp BP Pulse Ox O2 Del Method 97.0 F 54 L 16 134/69 H 98 Room Air 10/13/25 08:00 10/13/25 08:00 10/13/25 08:00 10/13/25 08:00 10/13/25 08:00 10/13/25 08:00 Narrative Exam General: No acute distress; A&Ox3 Skin: Warm, dry, intact, no obvious rash. HENT: NCAT, EOMI/PERRL, not icteric. External ears normal. No rhinorrhea. Moist mucous membranes Cardiovascular: Regular rate and rhythm, no murmur, +S1/S2. Respiratory: Lungs CTAB GI: Soft, nontender, non-distended. No guarding or rebound tenderness. : No suprapubic tenderness. No flank tenderness bilaterally. Extremities: no edema, no cyanosis, no clubbing. Extremity pulses present Neuro: Grossly nonfocal. Moving all 4 extremities. CN not formally tested but appear grossly intact. Psychiatric: Cooperative, appropriate affect. Objective Labs 10/14/25 06:32 10/14/25 06:32 Labs: Laboratory Results - last 24 hr 10/12/25 10/12/25 10/12/25 16:55 17:55 19:17 WBC 6.9 RBC 3.97 L Hgb 12.2 Hct 39.2 MCV 99 MCH 30.7 MCHC 31.1 RDW Std Deviation 58.4 H Plt Count 195 Neut % (Auto) 70 Lymph % (Auto) 20 Murray % (Auto) 8 Eos % (Auto) 2 Baso % (Auto) 1 Neut # (Auto) 4.8 Lymph # (Auto) 1.4 Murray # (Auto) 0.5 Eos # (Auto) 0.1 Baso # (Auto) 0.0 Immature Gran # (Auto) 0.02 H Absolute Nucleated RBC 0.00 Immature Gran % 0 Nucleated RBC % 0 PT INR APTT D-Dimer 1610 H Sodium 139 Potassium 4.6 Chloride 103 Carbon Dioxide 25.1 Anion Gap 11 BUN 23 Creatinine 1.4 H Estim Creat Clear Calc Not Performed. eGFR 38 L BUN/Creatinine Ratio [address] Glu mg/dL 88 Hemoglobin A1c 4.7 L Calculated Osmolality 282 Calcium 9.7 Corrected Calcium 9.7 Phosphorus Magnesium 1.9 Total Bilirubin 0.8 Direct Bilirubin 0.2 AST 54 H ALT 25 Alkaline Phosphatase 96 Troponin I 0.203 H* 1.606 H* D Total Protein 7.4 Albumin 4.4 Globulin 3.0 Albumin/Globulin Ratio 1.5 Triglycerides Cholesterol LDL Cholesterol, Calc HDL Cholesterol Cholesterol/HDL Ratio TSH 6.12 H Free T4 1.60 Free T3 pg/dL 3.3 Ur Collection Type Clean Catch Urine Color Yellow Urine Clarity Clear Urine pH 6.0 Ur Specific [place] 1.030 Urine Protein 3+ A Urine Glucose (UA) Negative Urine Ketones Trace Urine Blood Negative Urine Nitrite Negative Urine Bilirubin Negative Urine Urobilinogen (Auto) 2.0 Ur Leukocyte Esterase Negative Urine RBC 5 H Urine WBC 6 H Ur Squamous Epith Cells 1 Urine Bacteria None Hyaline Casts < 1 Ur Culture Indicated? Not Indicated 10/12/25 10/12/25 10/13/25 22:13 23:15 00:36 WBC RBC Hgb Hct MCV MCH MCHC RDW Std Deviation Plt Count Neut % (Auto) Lymph % (Auto) Murray % (Auto) Eos % (Auto) Baso % (Auto) Neut # (Auto) Lymph # (Auto) Murray # (Auto) Eos # (Auto) Baso # (Auto) Immature Gran # (Auto) Absolute Nucleated RBC Immature Gran % Nucleated RBC % PT 10.7 INR 1.0 APTT 26.2 D-Dimer Sodium Potassium Chloride Carbon Dioxide Anion Gap BUN Creatinine Estim Creat Clear Calc eGFR BUN/Creatinine Ratio Glucose Estimated Ave Glu mg/dL Hemoglobin A1c Calculated Osmolality Calcium Corrected Calcium Phosphorus Magnesium Total Bilirubin Direct Bilirubin AST ALT Alkaline Phosphatase Troponin I 2.528 H* D 2.716 H* Total Protein Albumin Globulin Albumin/Globulin Ratio Triglycerides 47 Cholesterol 189 LDL Cholesterol, Calc 108 HDL Cholesterol 72 H Cholesterol/HDL Ratio 2.6 L TSH Free T4 Free T3 pg/dL Ur Collection Type Urine Color Urine Clarity Urine pH Ur Specific [place] Urine Protein Urine Glucose (UA) Urine Ketones Urine Blood Urine Nitrite Urine Bilirubin Urine Urobilinogen (Auto) Ur Leukocyte Esterase Urine RBC Urine WBC Ur Squamous Epith Cells Urine Bacteria Hyaline Casts Ur Culture Indicated? 10/13/25 06:15 WBC 4.0 D RBC 2.88 L Hgb 8.9 L D Hct 27.8 L D MCV 97 MCH 30.9 MCHC 32.0 RDW Std Deviation 57.4 H Plt Count 150 D Neut % (Auto) 56 Lymph % (Auto) 30 Murray % (Auto) 10 Eos % (Auto) 3 Baso % (Auto) 1 Neut # (Auto) 2.2 Lymph # (Auto) 1.2 Murray # (Auto) 0.4 Eos # (Auto) 0.1 Baso # (Auto) 0.0 Immature Gran # (Auto) 0.00 Absolute Nucleated RBC 0.00 Immature Gran % 0 Nucleated RBC % 0 PT 11.2 INR 1.1 APTT > 139.0 H* D D-Dimer Sodium 139 Potassium 4.6 Chloride 105 Carbon Dioxide 25.7 Anion Gap 8 BUN 23 Creatinine 1.2 Estim Creat Clear Calc 29.1 L eGFR 45 L BUN/Creatinine Ratio [address] Glu mg/dL Hemoglobin A1c Calculated Osmolality 281 Calcium 8.4 Corrected Calcium 9.2 Phosphorus 3.4 Magnesium 2.8 H Total Bilirubin Direct Bilirubin AST ALT Alkaline Phosphatase Troponin I 1.843 H* D Total Protein Albumin 3.0 L D Globulin Albumin/Globulin Ratio Triglycerides 35 Cholesterol 182 LDL Cholesterol, Calc 105 HDL Cholesterol 70 H Cholesterol/HDL Ratio 2.6 L TSH Free T4 Free T3 pg/dL Ur Collection Type Urine Color Urine Clarity Urine pH Ur Specific [place] Urine Protein Urine Glucose (UA) Urine Ketones Urine Blood Urine Nitrite Urine Bilirubin Urine Urobilinogen (Auto) Ur Leukocyte Esterase Urine RBC Urine WBC Ur Squamous Epith Cells Urine Bacteria Hyaline Casts Ur Culture Indicated? Quality Measures Quality Measures VTE prophylaxis Advance care planning discussed with:: patient Assessment & Plan Assessment Current Active Medications: Generic Name Dose Route Start Last Admin Trade Name Freq PRN Reason Stop Dose Admin Acetaminophen 650 mg 10/12/25 21:14 Acetaminophen 325 Mg Tablet PO 11/11/25 21:13 Q6H PRN Fever >101.5 or pain 1-3 Aspirin 81 mg 10/13/25 09:00 10/13/25 09:00 Aspirin Ec 81 Mg Tabec PO 11/12/25 08:59 81 mg QDAY HAYLIE Administration Atorvastatin Calcium 80 mg 10/13/25 21:00 Atorvastatin Calcium 20 Mg Tablet PO 11/12/25 20:59 HS HAYLIE Hydralazine HCl 25 mg 10/13/25 09:00 10/13/25 08:51 Hydralazine Hcl 25 Mg Tablet PO 11/12/25 08:59 Not Given BID HAYLIE Heparin Sodium/Dextrose 25,000 unit in 250 mls @ 6.161 mls/hr 10/12/25 23:18 10/13/25 08:32 Heparin In D5w Ivpb IV 10/26/25 22:59 9 units/kg/hr .Q24H HAYLIE 4.621 mls/hr Protocol Titration 12 UNITS/KG/HR Levothyroxine Sodium 50 mcg 10/13/25 06:00 10/13/25 05:41 Levothyroxine Sodium 25 Mcg Tablet PO 11/12/25 05:59 50 mcg ACBR HAYLIE Administration Lorazepam 1 mg 10/12/25 21:26 Lorazepam 0.5 Mg Tablet PO 10/18/25 08:59 BID PRN Anxiety Metoprolol Succinate 100 mg 10/13/25 09:00 10/13/25 08:51 Metoprolol Succinate Xl 25 Mg Tabcr PO 11/12/25 08:59 Not Given QDAY HAYLIE Ondansetron HCl 4 mg 10/12/25 21:22 Ondansetron Inj 2 Mg/Ml Inj 2 Ml IVP 11/11/25 21:21 Q6H PRN NAUSEA OR VOMITING Protocol Sennosides 1 tab 10/13/25 00:35 Senna/Docusate Sod 1 Tab Tablet PO 11/12/25 00:34 QDAY PRN CONSTIPATION Protocol Valsartan 160 mg 10/13/25 09:00 10/13/25 08:51 Valsartan 80 Mg Tablet PO 11/12/25 08:59 Not Given QDAY HAYLIE Plan This patient is an 80-year-old female with a history of hypertension, CAD status post stents x 2 (patient follows with Dr. Schwartz in [place]), renal cell carcinoma status post right nephrectomy with mets to right scapula/ribs/anterior iliac bones (patient follows Dr. Solares for nephrology and Dr. Hickman in [place] for hematology oncology) who presents to [facility] ED after being told that she had very high blood pressure by her PCP. Patient was admitted for management of NSTEMI. #NSTEMI, likely type I versus type II #History of CAD status post stents x 2 Patient presented without any symptoms but was incidentally found to have elevated troponins on ED evaluation. Patient does have a history of CAD status post stents x 2. Patient follows polishing wheel setter Dr. Schwartz in [place] and takes aspirin 81 mg nightly at home. Diagnostic: Troponin initially 0.203, which increased to 1.606, and further increased to 2.528 Initial EKG on 10/[address] elevations in aVR, subsequent EKG similar to later on 10/12 unremarkable Treatment: Cardiology consulted, appreciate recommendations Per cardiology, treat as NSTEMI with heparin drip and aspirin Loading dose of aspirin 324 mg and metoprolol tartrate 50 mg one-time dose given in ED Heparin drip (10/13?) Resumed home aspirin 81 mg daily Keep potassium above 4 and magnesium above 2 Loading dose of atorvastatin 80 mg given 10/13 Started Atorvastatin 80 mg q hs Held metoprolol for bp to 130s & heart rate to 50, will resume when BP over 165 or when 24-48 hour window for 25% BP drop has ceased. Will continue to trend troponin every 3 hours until downtrend Will hold the patient's home Cabometyx 20 mg daily until cleared by cardiology as this medication has patient to increase incidence of thrombotic events and hypertension/hypertensive crisis per FDA prescribing information warnings and precautions (5.3 and 5.4) #Hypertensive emergency #History of hypertension, primary Patient does have a history of hypertension and is on multiple antihypertensives at home. The patient does note that over the past week, ever since she hurt her hips, she has been having elevated blood pressure readings at home. Patient was told to seek care at [facility] ED after her PCP noted a SBP over 200 in the clinic. Treatment: Patient received clonidine 0.3 mg and metoprolol tartrate 50 mg in ED Held metoprolol succinate 100 mg daily, hydralazine 25 mg twice daily, and valsartan 160 mg daily because of bp to 130s & heart rate to 50, will resume when BP over consistently over 160 and/or when 24-48 hour window for 25% BP drop has ceased. #CKD stage IIIb-IV Patient has a history of CKD stage IV and follows Dr Solares, nephrology, outpatient. 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 The patient does follow her sagger preparer Dr. Solares in [place] for management of this condition. Previous imaging has identified metastases to right scapula, ribs, and anterior iliac bones. Patient does follow Dr. Hickman in [place] for hematology oncology and only takes Cabometyx for management of this condition. Patient episode stable for several years and has not received any recent chemotherapy/immunotherapy infusion or radiation therapy treatments. Diagnostic: Chest x-ray on 10/12 does note fairly large expansile lytic lesion in the right scapula as the same size and appearance as identified on CT chest on Treatment: Will hold the patient's home Cabometyx 20 mg daily until cleared by cardiology as this medication has patient to increase incidence of thrombotic events and hypertension/hypertensive crisis per FDA prescribing information warnings and precautions (5.3 and 5.4) Patient to follow-up outpatient #Left lower lobe nodular opacity As noted on chest x-ray 10/12. Patient states that she is aware that she has a lung spot which has been present for months and the patient was told that it has been stable so far and we will plan to have less frequent imaging outpatient. Treatment: Patient to follow-up outpatient #Elevated AST AST noted to be elevated on admission, patient does seem to have chronically elevated AST without elevations of other LFTs. Possibly secondary to Cabometyx as it has been shown to increase LFTs. Treatment: Patient to follow-up outpatient #Degenerative disc disease, C5-C6, C6-C7 with #Bilateral neural foraminal stenosis As found on CT cervical spine 10/12. Patient did not complain of any neck pain on examination prior to admission. Patient does not have any new onset weakness or extremity pain suggestive of acute neural foraminal stenosis requiring neurosurgical intervention. Treatment: Patient to follow-up outpatient #History of hypothyroidism The patient takes levothyroxine at home for management of hypothyroidism, but notes that she feels cold intolerance constantly. The patient is not sure when the last time she has had her TSH evaluated but notes that she has not had a change in the dosage of her home levothyroxine for about two years. Diagnostic: On admission, TSH 6.12, free T4 1.60, and free T3 3.3 Treatment: Levothyroxine 50 mcg ACBR (patient takes 50 mcg every other day at home) DVT Prophylaxis: Heparin gtt GI Prophylaxis: none Bowel: Senokot PRN Diet: Patient requested full liquid, will place NPO at midnight Code Status: FULL Reason for Hospitalization: NSTEMI Other Barriers to Discharge: Cardiology consult Patient plan of care was discussed with the attending physician, Dr. Zavala & senior resident Dr. Chris Mosqueda MD PGY-1 Attending Provider Attestation/Addendum I have examined the patient, reviewed labs and imaging findings, discussed the case with the resident(s), and reviewed entered orders. I agree with the plan of care as outlined in this note, with these additional summaries/recommendations: Patient seen at bedside. Patient has no complaints at this time including chest pain, shortness of breath, or palpitations. Patient admitted overnight for NSTEMI and uncontrolled blood pressure. NSTEMI type I from ACS/plaque rupture versus type II from demand ischemia/hypertensive emergency. Patient given loading dose of aspirin in the ED. Continue daily aspirin 81 mg p.o. daily and statin therapy. Continue heparin gtt. and target APTT of 60 to 80 seconds. APTT supratherapeutic greater than 139 today and pharmacy dosing. In-house cardiology consulted, recommendations appreciated. Echocardiogram pending. Patient was found to have systolic blood pressure into the 220s on admission. Systolic blood pressure has trended down into the 140s to 150s today which is already an appropriate correction. Patient has underlying CKD which appears to be stage IIIb with history of metastatic renal cell carcinoma. Renal function appears at baseline and outpatient follow-up with nephrology/oncology. Continue home levothyroxine for hypothyroidism. Patient updated on the plan and in agreement. All questions answered to satisfaction. Please see residents note for additional details and management. Dr. Sally MD
--- NOTE | 2025-10-13 14:30 | PC.SS ---
Rounding Note: Patient on Heparin drip. Cardiology recommendations are pending.
[2025-10-13 15:30] LABS: Partial Thromboplastin Time 87.0 Seconds (22.0-36.0)
--- NOTE | 2025-10-13 18:21 | ESCONSULT_ITS ---
<Statement entered by Chelle Schwartz MD - 10/16/25 12:51> I personally evaluated this patient in telemetry floor patient is very well- known to me alongside history of multivessel stent placed in LAD circumflex arteries came to the hospital with shortness of breath angina: Symptoms and troponin elevation suggestive of acute myocardial infarction NSTEMI patient stated aspirin and heparin at my direction continues to improve but still having shortness of breath there is significant troponin elevation and come down delta troponin highly suspicious for myocardial infarction with no other cause hence coronary angio will be recommended evaluate the patient with resident physician Dr. Cruz agree with treatment plan recommendation as documented by PGY 2 will continue to monitor the patient schedule patient for coronary angiogram cardiac attrition tomorrow. HPI Data of Consult Requesting Physician: Gio Bragg MD Admitting Provider: Gio Bragg MD Attending Provider: Gio Bragg MD Primary Care Provider: Physician No Primary/Family Consult Narrative Reason for consult: Elevated troponins History of present illness: Patient is 80 yr female with PMH of hypertension, CAD s/p PCI, renal cell carcinoma status post right nephrectomy, stage IV metastatic disease following with heme oncologist, Dr. Hickman in [place], CKD following with Dr Solares, anemia presented to ED 10/12. She was sent by PCP after outpatient visit showed elevated blood pressure. Upon arrival to the ED noted her systolic was at 200. Patient today denies any chest pain, dizziness, lower extremity swelling. Stents were placed in 2019. Imaging at that time concerning for narrowing in (LAD) . She endorses shortness of breath when doing daily activities at home. ED vitals 220/98, heart rate 111. Troponin has delta 2.71 most recent 1.84. Most recent EKG showing some ST elevation in lead V1 aVR. Remains on heparin drip. Today telemetry reviewed and patient in normal sinus rhythm rate 50?60. Labs reviewed. Plan for angiogram tomorrow morning. Echo done today, EF 60-65%, grade 1 diastolic dysfunction, mild concentric hypertrophy. cc:: cc: Gio Bragg MD Review of Systems Review of Systems Systems Reviewed: All systems reviewed, normal except as documented Exam Vital Signs Temp Pulse Resp BP Pulse Ox O2 Del Method 97.7 F 55 L 15 153/69 H 99 Room Air 10/13/25 16:00 10/13/25 16:00 10/13/25 16:00 10/13/25 16:00 10/13/25 16:00 10/13/25 16:00 Narrative Exam General: Alert and oriented x3. No acute distress, cooperative HEENT: NCAT, No JVD noted. Mucosa moist. Pupils are equal and reactive to light bilaterally Cardiovascular: Normal S1 and S2. Regular rate and rhythm. Respiratory: Lungs are clear to auscultation bilaterally. No wheezing or crackles heard. Abdomen: Soft, nontender, not distended, normal bowel sounds. Skin: Warm to touch, dry, no rashes note, bruisng noted throughout UE Musculoskeletal: No gross injuries. Able to move all 4 extremities. No pitting edema Neuro: Alert and oriented x3. No focal neuro deficits. Psych: Normal affect and mood Results Labs 10/13/25 06:15 10/13/25 06:15 Labs: Short CBC 10/13/25 Range/Units 06:15 WBC 4.0 D (3.6-11.0) Thou/mm3 Hgb 8.9 L D (12.0-16.0) g/dL Hct 27.8 L D (36.0-46.0) % Plt Count 150 D (140-440) Thou/mm3 BMP 10/13/25 06:15 Sodium 139 Potassium 4.6 Chloride 105 Carbon Dioxide 25.7 BUN 23 Creatinine 1.2 Glucose 91 Calcium 8.4 Cardiac Enzymes 10/12/25 10/12/25 10/13/25 Range/Units 19:17 22:13 00:36 Troponin I 1.606 H* D 2.528 H* D 2.716 H* (0.0-0.045) ng/mL 10/13/25 Range/Units 06:15 Troponin I 1.843 H* D (0.0-0.045) ng/mL Liver Function 10/13/25 Range/Units 06:15 Albumin 3.0 L D (3.4-4.8) gm/dL Urine 10/12/25 Range/Units 17:55 Urine Color Yellow (Lt Yel-Yel) Urine Clarity Clear (Clear/Hazy) Urine pH 6.0 (5.0-7.0) Ur Specific [place] 1.030 (1.001-1.035) Urine Protein 3+ A (Neg - Trace) Urine Glucose (UA) Negative (Negative) Quality Measures Quality Measures VTE prophylaxis Advance care planning discussed with:: patient Medications Home Medications and Allergies Home Medications ?Medication ?Instructions ?Recorded ?Confirmed ?Type aspirin 81 mg tablet,delayed 81 mg PO HS 03/17/2007/30 History release metoprolol succinate 100 mg 100 mg PO QDAY 03/17/20 History tablet,extended release 24 hr cabozantinib 20 mg tablet 20 mg PO QDAY 05/30/2210/13 History (Cabometyx) ergocalciferol (vitamin D2) 400 400 unit PO HS 2 10/13/25 History unit capsule lorazepam 1 mg tablet 1 mg PO BID PRN Anxiety 05/0610/13/25 History calcitriol 0.25 mcg capsule See Rx Instructions .Route .COMPLEX 10/26/23 10/13/25 History levothyroxine 50 mcg tablet 50 mcg PO EVERYOTHERDAY 10/13/25 History bumetanide 2 mg tablet 1 mg PO DAILY PRN edema 07/3010/13/25 History ferrous sulfate 325 mg (65 mg 325 mg PO HS 10/13/25 History iron) tablet hydralazine 25 mg tablet 25 mg PO BID 10/13/25 History valsartan 160 mg tablet 160 mg PO DAILY 10/13/2507/30 History vitamin B complex 1 tab PO DAILY 10/13/2507/30 History Allergies Allergy/AdvReac Type Severity Reaction Status Date / Time Penicillins Allergy Severe Anaphylaxis Verified 10/12/25 16:22 metformin Allergy Intermediate Rash Verified 10/12/25 16:22 Visit Medications Acetaminophen (Acetaminophen 325 Mg Tablet) 650 mg PO Q6H PRN PRN Reason: Fever >101.5 or pain 1-3 Stop: 11/11/25 21:13 Aspirin (Aspirin Ec 81 Mg Tabec) 81 mg PO QDAY [facility] Stop: 11/12/25 08:59 Last Admin: 10/13/25 09:00 Dose: 81 mg Atorvastatin Calcium (Atorvastatin Calcium 20 Mg Tablet) 80 mg PO [facility] Stop: 11/12/25 20:59 Hydralazine HCl (Hydralazine Hcl 25 Mg Tablet) 25 mg PO BID [facility] Stop: 11/12/25 08:59 Last Admin: 10/13/25 08:51 Dose: Not Given Heparin Sodium/Dextrose (Heparin In D5w Ivpb) 25,000 unit in 250 mls @ 6.161 mls/hr IV .Q24H [facility]; Protocol Stop: 10/26/25 22:59 Last Titration: 10/13/25 16:10 Dose: 7 units/kg/hr, 3.594 mls/hr Levothyroxine Sodium (Levothyroxine Sodium 25 Mcg Tablet) 50 mcg PO ACBR [facility] Stop: 11/12/25 05:59 Last Admin: 10/13/25 05:41 Dose: 50 mcg Lorazepam (Lorazepam 0.5 Mg Tablet) 1 mg PO BID PRN PRN Reason: Anxiety Stop: 10/18/25 08:59 Metoprolol Succinate (Metoprolol Succinate Xl 25 Mg Tabcr) 100 mg PO QDAY [facility] Stop: 11/12/25 08:59 Last Admin: 10/13/25 08:51 Dose: Not Given Ondansetron HCl (Ondansetron Inj 2 Mg/Ml Inj 2 Ml) 4 mg IVP Q6H PRN; Protocol PRN Reason: NAUSEA OR VOMITING Stop: 11/11/25 21:21 Sennosides (Senna/Docusate Sod 1 Tab Tablet) 1 tab PO QDAY PRN; Protocol PRN Reason: CONSTIPATION Stop: 11/12/25 00:34 Valsartan (Valsartan 80 Mg Tablet) 160 mg PO QDAY [facility] Stop: 11/12/25 08:59 Last Admin: 10/13/25 08:51 Dose: Not Given Discontinued Medications Aspirin (Aspirin 81 Mg Chew) 324 mg PO X1 ONE Stop: 10/12/25 18:01 Last Admin: 10/12/25 19:04 Dose: 324 mg Aspirin (Aspirin Ec 81 Mg Tabec) 81 mg PO HS [facility] Stop: 11/12/25 20:59 Atorvastatin Calcium (Atorvastatin Calcium 20 Mg Tablet) 80 mg PO X1 ONE Stop: 10/13/25 01:56 Last Admin: 10/13/25 02:38 Dose: 80 mg Clonidine (Clonidine Hcl 0.1 Mg Tablet) 0.3 mg PO X1 ONE Stop: 10/12/25 16:42 Last Admin: 10/12/25 17:43 Dose: 0.3 mg Heparin Sodium (Porcine) (Heparin Sod Inj 5000 Unit/Ml Vial) 5,000 unit SC Q12H [facility] Stop: 10/26/25 21:29 Heparin Sodium (Porcine) (Heparin Sod Inj 5000 Unit/Ml Vial) 3,000 unit IV X1 ONE; Protocol Stop: 10/12/25 22:51 Last Admin: 10/13/25 00:11 Dose: 3,000 unit Heparin Sodium (Porcine) (Heparin Sod Inj 5000 Unit/Ml Vial) 3,000 unit IV X1 ONE; Protocol Stop: 10/13/25 00:16 Last Admin: 10/13/25 00:20 Dose: Not Given Magnesium Sulfate (Magnesium Sulfate Ivpb) 4 gm in 50 mls @ 12.5 mls/hr IV X1 ONE Stop: 10/13/25 05:53 Last Admin: 10/13/25 02:37 Dose: 12.5 mls/hr Metoprolol Tartrate (Metoprolol Tartrate 25 Mg Tablet) 50 mg PO X1 ONE Stop: 10/12/25 16:42 Last Admin: 10/12/25 17:43 Dose: 50 mg Non-Formulary Medication (Cabometyx) 20 mg PO QDAY [facility] Stop: 11/12/25 08:59 Assessment & Plan Plan Patient is 80 yr female with PMH of hypertension, CAD s/p PCI, renal cell carcinoma status post right nephrectomy, stage IV metastatic disease following with heme oncologist, Dr. Hickman in [place], CKD following with Dr Solares, anemia presented to ED 10/12. She was sent by PCP after outpatient visit showed elevated blood pressure. Cardiology consulted for elevated troponins. #NSTEMI, type I #History of CAD status post stents x 2 Patient presented without any symptoms but was incidentally found to have elevated troponins on ED evaluation. She does endorse SOB at times such as when washing dishes. Patient does have a history of CAD status post stents x 2. Patient follows tool setter apprentice Dr. Schwartz in [place] and takes aspirin 81 mg nightly at home. Troponin initially 0.203, delta 2.528. Now 1.84. Initial EKG on 10/[address] elevations in aVR Loading dose of aspirin 324 mg and metoprolol tartrate 50 mg one-time dose given in ED -Heparin drip -Resumed home aspirin 81 mg daily -Keep potassium above 4 and magnesium above 2 -Loading dose of atorvastatin 80 mg given 10/13 -- Atorvastatin 80 mg q h -patient will have angiogram tomorrow morning #CKD stage IIIb-IV Patient has a history of CKD stage IV and follows Dr Solares, nephrology, outpatient. 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 The patient does follow her polishing pad mounter Dr. Solares in [place] for management of this condition. Previous imaging has identified metastases to right scapula, ribs, and anterior iliac bones. Patient does follow Dr. Hickman in [place] for hematology oncology and only takes Cabometyx for management of this condition. Patient episode stable for several years and has not received any recent chemotherapy/immunotherapy infusion or radiation therapy treatments. Diagnostic: Chest x-ray on 10/12 does note fairly large expansile lytic lesion in the right scapula as the same size and appearance as identified on CT chest on Treatment: Will hold the patient's home Cabometyx 20 mg daily until cleared by cardiology as this medication has patient to increase incidence of thrombotic events and hypertension/hypertensive crisis per FDA prescribing information warnings and precautions (5.3 and 5.4) Patient to follow-up outpatient #Left lower lobe nodular opacity #Elevated AST #Degenerative disc disease, C5-C6, C6-C7 with #Bilateral neural foraminal stenosis #History of hypothyroidism Primary care team to manage above conditions and ongoing care needs. The patient's management plan was discussed with my attending physician Dr. Schwartz. Mishel Horvath, PGY-2
[2025-10-13 23:26] LABS: Partial Thromboplastin Time 51.8 Seconds (22.0-36.0)
[2025-10-14] VITALS (22 sets, daily range): BP systolic 151–189; BP diastolic 64–99; PULSE 58–96; RESP 11–97; TEMP 36.1–37; O2SAT 96–99; BMI 17.9; BMI 18.1
[2025-10-14] MEDS: Heparin/D5w 25K 250 ML Ivpb 25,000 UNIT/250 ML BAG 3.594 UNIT IV (00:45)
[2025-10-14] MEDS: LEVOTHYROXINE SODIUM 25 MCG TABLET 50 MCG PO (05:12)
[2025-10-14 06:48] LABS: Basophils # (Auto) 0.0 Thou/mm3 (0.0-0.2); Basophils % (Auto) 0 % (0-2.5); Eosinophils # (Auto) 0.2 Thou/mm3 (0.0-0.5); Eosinophils % (Auto) 3 % (0-10); Hematocrit 30.1 % (36.0-46.0); Hemoglobin 9.7 g/dL (12.0-16.0); Immature Granulocytes Auto 0.01 Thou/mm3 (0.00-0.00); Lymphocytes # (Auto) 1.2 Thou/mm3 (1.0-4.8); Lymphocytes % (Auto) 21 % (10-50); Mean Corpuscular HGB Conc 32.2 g/dl (31.0-37.0); Mean Corpuscular Hemoglobin 30.8 pg (25.0-35.0); Mean Corpuscular Volume 96 fL (80-100); Monocytes # (Auto) 0.6 Thou/mm3 (0.0-0.8); Monocytes % (Auto) 11 % (0-12); Neutrophils # (Auto) 3.7 Thou/mm3 (1.8-7.7); Neutrophils % (Auto) 65 % (37-80); Nucleated Red Blood Cell # 0.00 Thou/mm3 (0.00-0.00); Nucleated Red Blood Cell % 0 /100 WBC (0); Platelet Count 166 Thou/mm3 (140-440); RDW Standard Deviation 56.5 fL (36.4-46.3); Red Blood Count 3.15 Miln/mm3 (4.00-5.20); White Blood Count 5.7 Thou/mm3 (3.6-11.0)
[2025-10-14 07:21] LABS: Alanine Aminotransferase 21 U/L (10-49); Albumin, Serum 3.1 gm/dL (3.4-4.8); Albumin/Globulin Ratio 1.5 (1.2-2.2); Alkaline Phosphatase 75 U/L (46-116); Anion Gap 9 (7-16); Aspartate Amino Transferase 45 U/L (0-34); BUN/Creatinine Ratio 18 Ratio (12-20); Bilirubin,Total 0.7 mg/dL (0.3-1.2); Blood Urea Nitrogen 25 mg/dL (9-23); Calcium 8.4 mg/dL (8.3-10.6); Calcium (Corrected) 9.1 mg/dL (8.5-10.1); Carbon Dioxide 23.4 mMol/L (20.0-31.0); Chloride 105 mMol/L (98-107); Creatinine (Component) 1.4 mg/dL (0.6-1.3); Estimated Creatinine Clearance 22.2 mL/min (>60); Globulin 2.1 gm/dL (2.3-3.5); Glucose 82 mg/dL (74-106); Magnesium 2.3 mg/dL (1.6-2.6); Osmolality,Calculated 277 (275-295); Phosphorous 3.6 mg/dL (2.4-5.1); Potassium 4.5 mMol/L (3.4-5.1); Sodium 137 mMol/L (136-145); Total Protein 5.2 gm/dL (5.7-8.2); eGFR 38 See Note
[2025-10-14 07:25] LABS: INR 1.0 (0.9-1.3); Partial Thromboplastin Time 47.0 Seconds (22.0-36.0); Prothrombin Time 10.8 Seconds (9.0-12.2)
[2025-10-14] MEDS: ASPIRIN EC 81 MG TABEC PO (08:01)
--- NOTE | 2025-10-14 09:01 | PC.SS ---
Update: Plan is for the patient to obtain procedure at field laboratory operator today.
--- NOTE | 2025-10-14 09:58 | PC.NURSE ---
0858 patient is awake, alert, breathing unlabored, s/p [facility] with PCI, dressing to right groin dry with no bleeding or hematoma, report received from [place] CARPENTER, patient to recover for 2 hours. 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 Patient to resume aspirin tomorro and start new medication plavix tomorrow. Heparin drip to be stopped.
[2025-10-14] MEDS: SODIUM CHLORIDE 0.45 % 500 ML 100 ML IV (10:00)
[2025-10-14] MEDS: HYDROcodone/APAP 5/325 TABLET 1 TAB PO (10:44)
[2025-10-14 11:14] LABS: ACT (CATH LAB ONLY) 297.0 Seconds (89-169)
--- NOTE | 2025-10-14 11:51 | PC.NURSE ---
patient did not want to eat sandwich due to no dentures, soft diet ordered, pt will wait to go back to room to eat, lunch tray will be sent with patient. Report given to Sangita RN, will get patient ready to go back to tele room
[2025-10-14] MEDS: VALSARTAN 80 MG TABLET 160 MG PO (12:47)
--- NOTE | 2025-10-14 13:35 | PC.NURSE ---
1205 patient is awake, alert, breathing unlabored, dressing to right groin dry with no bleeding or hematoma, report has been given to Sangita CARPENTER, patient transferred back to room 262 with tele box.
--- NOTE | 2025-10-14 13:39 | PC.SS ---
Addendum entered and electronically signed by JOAQUIM Pringle 10/14/25 13:42: Patient's oncologist is Jose Cleaning. Patient participating in chemotherapy, pill form. Original Note: LOGISTICS LEAD conducted bedside contact with the patient conduct initial assessment and to discuss discharge planning.? Patient confirmed demographic information.? Patient resides at home with sister, Hemalatha Johnson.? Patient utilizes a walker to assist with ambulation.? Patient does not utilize home oxygen.? Patient requires assistance with the completion of ADL?s.? Patient possesses a care provider, Franci Mitchell; to assist with the completion of ADL?s.? Patient?s surrogate medical decision maker is son, Brady Cota .? Patient?s PCP is Thu Lgauna.? Patient?s shotgun shell assembly machine operator is Dr. Schwartz.? Patient?s electromyographic technician is Dr. Solares.? Patient does not participate with dialysis.? Patient utilizes [facility] for medication services. ?Discharge plan is for the patient to return home.? branch services manager to assist the patient with transport upon discharge.? If home health recommended no preferred agency identified.? No further discharge needs identified by the patient.? No further intervention required at this time, marriage and family social worker will be available to address any further concerns.? Next of Kin: Brady Cipriano D/C Plan: Home
--- NOTE | 2025-10-14 14:29 | PC.SS ---
Rounding Note: Plan is for the patient to discharge tomorrow.
--- NOTE | 2025-10-14 15:43 | ESPR_ITS ---
<Statement entered by Reinaldo Saini MD - 10/14/25 16:45> No acute overnight events. Seen and examined at bedside prior to going to lab rn and states she has some left-sided chest pressure/tightness that occurs at rest. Otherwise, no shortness of breath. Will follow-up on cardiology recommendations and anticipate discharge within next 24-48 hours. ----- Note reviewed and agree with care plan as documented. Please refer to the note below for further details. Plan discussed with attending physician Dr. Sally Saini MD PGY-2 Internal Medicine Documentation for date of: 10/14/25 Subjective Subjective Interval history: No acute events overnight. Patient went to lab rn this morning. Will follow up cardiology recs Plan to discharge tomorrow per social services analyst Exam Vital Signs Temp Pulse Resp BP Pulse Ox O2 Del Method 97.0 F 74 16 172/88 H 96 Room Air 10/14/25 12:15 10/14/25 12:47 10/14/25 12:15 10/14/25 12:47 10/14/25 12:15 10/14/25 11:57 Narrative Exam General: No acute distress; A&Ox3 Skin: Warm, dry, intact, no obvious rash. HENT: NCAT, EOMI/PERRL, not icteric. External ears normal. No rhinorrhea. Moist mucous membranes Cardiovascular: Regular rate and rhythm, no murmur, +S1/S2. Respiratory: Lungs CTAB GI: Soft, nontender, non-distended. No guarding or rebound tenderness. : No suprapubic tenderness. No flank tenderness bilaterally. Extremities: no edema, no cyanosis, no clubbing. Extremity pulses present Neuro: Grossly nonfocal. Moving all 4 extremities. CN not formally tested but appear grossly intact. Psychiatric: Cooperative, appropriate affect. Objective Labs 10/15/25 05:35 10/15/25 05:35 Labs: Laboratory Results - last 24 hr 10/13/25 10/13/25 10/14/25 14:42 22:18 06:32 WBC 5.7 D RBC 3.15 L Hgb 9.7 L Hct 30.1 L MCV 96 MCH 30.8 MCHC 32.2 RDW Std Deviation 56.5 H Plt Count 166 Neut % (Auto) 65 Lymph % (Auto) 21 [place] % (Auto) 11 Eos % (Auto) 3 Baso % (Auto) 0 Neut # (Auto) 3.7 Lymph # (Auto) 1.2 [place] # (Auto) 0.6 Eos # (Auto) 0.2 Baso # (Auto) 0.0 Immature Gran # (Auto) 0.01 H Absolute Nucleated RBC 0.00 Immature Gran % 0 Nucleated RBC % 0 PT 10.8 INR 1.0 APTT 87.0 H D 51.8 H D 47.0 H Activated Clotting Time Sodium 137 Potassium 4.5 Chloride 105 Carbon Dioxide 23.4 Anion Gap 9 BUN 25 H Creatinine 1.4 H Estim Creat Clear Calc 22.2 L eGFR 38 L BUN/Creatinine Ratio 18 Glucose 82 Calculated Osmolality 277 Calcium 8.4 Corrected Calcium 9.1 Phosphorus 3.6 Magnesium 2.3 Total Bilirubin 0.7 AST 45 H ALT 21 Alkaline Phosphatase 75 D Total Protein 5.2 L Albumin 3.1 L Globulin 2.1 L Albumin/Globulin Ratio 1.5 10/14/25 09:08 WBC RBC Hgb Hct MCV MCH MCHC RDW Std Deviation Plt Count Neut % (Auto) Lymph % (Auto) [place] % (Auto) Eos % (Auto) Baso % (Auto) Neut # (Auto) Lymph # (Auto) [place] # (Auto) Eos # (Auto) Baso # (Auto) Immature Gran # (Auto) Absolute Nucleated RBC Immature Gran % Nucleated RBC % PT INR APTT Activated Clotting Time 297.0 H Sodium Potassium Chloride Carbon Dioxide Anion Gap BUN Creatinine Estim Creat Clear Calc eGFR BUN/Creatinine Ratio Glucose Calculated Osmolality Calcium Corrected Calcium Phosphorus Magnesium Total Bilirubin AST ALT Alkaline Phosphatase Total Protein Albumin Globulin Albumin/Globulin Ratio Quality Measures Quality Measures VTE prophylaxis Advance care planning discussed with:: patient Assessment & Plan Assessment Current Active Medications: Generic Name Dose Route Start Last Admin Trade Name Freq PRN Reason Stop Dose Admin Acetaminophen 650 mg 10/12/25 21:14 Acetaminophen 325 Mg Tablet PO 11/11/25 21:13 Q6H PRN Fever >101.5 or pain 1-3 Aspirin 81 mg 10/13/25 09:00 10/14/25 08:01 Aspirin Ec 81 Mg Tabec PO 11/12/25 08:59 81 mg QDAY HAYLIE Administration Atorvastatin Calcium 80 mg 10/13/25 21:00 10/13/25 20:41 Atorvastatin Calcium 20 Mg Tablet PO 11/12/25 20:59 80 mg HS HAYLIE Administration Clopidogrel Bisulfate 75 mg 10/15/25 09:00 Clopidogrel Bisulfate 75 Mg Tablet PO 11/14/25 08:59 QDAY HAYLIE Levothyroxine Sodium 50 mcg 10/13/25 06:00 10/14/25 05:12 Levothyroxine Sodium 25 Mcg Tablet PO 11/12/25 05:59 50 mcg ACBR HAYLIE Administration Lorazepam 1 mg 10/12/25 21:26 Lorazepam 0.5 Mg Tablet PO 10/18/25 08:59 BID PRN Anxiety Metoprolol Succinate 100 mg 10/13/25 09:00 10/14/25 12:48 Metoprolol Succinate Xl 25 Mg Tabcr PO 11/12/25 08:59 Not Given QDAY HAYLIE Ondansetron HCl 4 mg 10/12/25 21:22 Ondansetron Inj 2 Mg/Ml Inj 2 Ml IVP 11/11/25 21:21 Q6H PRN NAUSEA OR VOMITING Protocol Sennosides 1 tab 10/13/25 00:35 Senna/Docusate Sod 1 Tab Tablet PO 11/12/25 00:34 QDAY PRN CONSTIPATION Protocol Valsartan 160 mg 10/13/25 09:00 10/14/25 12:47 Valsartan 80 Mg Tablet PO 11/12/25 08:59 160 mg QDAY HAYLIE Administration Plan This patient is an 80-year-old female with a history of hypertension, CAD status post stents x 2 (patient follows with Dr. Schwartz in [place]), renal cell carcinoma status post right nephrectomy with mets to right scapula/ribs/anterior iliac bones (patient follows Dr. Solares for nephrology and Dr. Hickman in [place] for hematology oncology) who presents to [facility] ED after being told that she had very high blood pressure by her PCP. Patient was admitted for management of NSTEMI. #NSTEMI type I #History of CAD status post stents x 2 Patient presented without any symptoms but was incidentally found to have elevated troponins on ED evaluation. Patient does have a history of CAD status post stents x 2. Patient follows beauty consultant Dr. Schwartz in [place] and takes aspirin 81 mg nightly at home. Diagnostic: Troponin initially 0.203, which increased to 1.606, and further increased to 2.528 Initial EKG on 10/[address] elevations in aVR, subsequent EKG similar to later on 10/12 unremarkable Loading Aspirin/Atorvastatin given in ED; Heparin drip DC'd hoisting laborer completed 10/14 -Cardiology consulted, appreciate recommendations -aspirin 81 mg daily -Plavix 75 mg po qd ordered -Keep potassium above 4 and magnesium above 2 -Atorvastatin 80 mg po q hs -Metoprolol succ 100 mg po qd -Will hold the patient's home Cabometyx 20 mg daily until cleared by cardiology #Hypertensive emergency, improved #History of hypertension, primary Patient does have a history of hypertension and is on multiple antihypertensives at home. The patient does note that over the past week, ever since she hurt her hips, she has been having elevated blood pressure readings at home. Patient was told to seek care at [facility] ED after her PCP noted a SBP over 200 in the clinic. Patient received clonidine 0.3 mg and metoprolol tartrate 50 mg in ED -metoprolol succinate 100 mg daily -hydralazine 25 mg twice daily -valsartan 160 mg daily #CKD stage IIIb-IV Patient has a history of CKD stage IV and follows Dr Solares, nephrology, outpatient. 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 The patient does follow her rubber trimmer Dr. Solares in [place] for management of this condition. Previous imaging has identified metastases to right scapula, ribs, and anterior iliac bones. Patient does follow Dr. Hickman in [place] for hematology oncology and only takes Cabometyx for management of this condition. Patient episode stable for several years and has not received any recent chemotherapy/immunotherapy infusion or radiation therapy treatments. Diagnostic: Chest x-ray on 10/12 does note fairly large expansile lytic lesion in the right scapula as the same size and appearance as identified on CT chest on Treatment: Will hold the patient's home Cabometyx 20 mg daily until cleared by cardiology as this medication has patient to increase incidence of thrombotic events and hypertension/hypertensive crisis per FDA prescribing information warnings and precautions (5.3 and 5.4) Patient to follow-up outpatient #Left lower lobe nodular opacity As noted on chest x-ray 10/12. Patient states that she is aware that she has a lung spot which has been present for months and the patient was told that it has been stable so far and we will plan to have less frequent imaging outpatient. Treatment: Patient to follow-up outpatient #Elevated AST, improving AST noted to be elevated on admission, patient does seem to have chronically elevated AST without elevations of other LFTs. Possibly secondary to Cabometyx as it has been shown to increase LFTs. Treatment: Patient to follow-up outpatient #Degenerative disc disease, C5-C6, C6-C7 with #Bilateral neural foraminal stenosis As found on CT cervical spine 10/12. Patient did not complain of any neck pain on examination prior to admission. Patient does not have any new onset weakness or extremity pain suggestive of acute neural foraminal stenosis requiring neurosurgical intervention. Treatment: Patient to follow-up outpatient #History of hypothyroidism The patient takes levothyroxine at home for management of hypothyroidism, but notes that she feels cold intolerance constantly. The patient is not sure when the last time she has had her TSH evaluated but notes that she has not had a change in the dosage of her home levothyroxine for about two years. Diagnostic: On admission, TSH 6.12, free T4 1.60, and free T3 3.3 Treatment: Levothyroxine 50 mcg ACBR (patient takes 50 mcg every other day at home) DVT Prophylaxis: Heparin GI Prophylaxis: none Bowel: Senokot PRN Diet: Cardiac Code Status: FULL Reason for Hospitalization: NSTEMI Other Barriers to Discharge: plan to DC ryne s/p lab rn 10/14 Patient plan of care was discussed with the attending physician, Dr. Zavala & senior resident Dr. Chris Mosqueda MD PGY-1 Attending Provider Attestation/Addendum I have examined the patient, reviewed labs and imaging findings, discussed the case with the resident(s), and reviewed entered orders. I agree with the plan of care as outlined in this note, with these additional summaries/recommendations: Patient seen at bedside. No acute overnight events. Patient will go for cardiac catheterization this morning with cardiology and we will follow-up postoperatively. Patient admitted for NSTEMI and uncontrolled blood pressure. NSTEMI type I from ACS/plaque rupture versus type II from demand ischemia/hypertensive emergency. Patient given loading dose of aspirin in the ED. Continue daily aspirin 81 mg p.o. daily and statin therapy. Continue heparin gtt. and target APTT of 60 to 80 seconds. In-house cardiology consulted with plans for cardiac catheterization today. Echocardiogram showed normal ejection fraction. Patient was found to have systolic blood pressure into the 220s on admission. Systolic blood pressure has trended down into the 150s/160s today. Patient has underlying CKD which appears to be stage IIIb with history of metastatic renal cell carcinoma. Renal function appears at baseline and outpatient follow-up with nephrology/oncology. Continue home levothyroxine for hypothyroidism. Patient updated on the plan and in agreement. All questions answered to satisfaction. Please see residents note for additional details and management. Dr. Sally MD
--- NOTE | 2025-10-14 16:09 | ESPR_ITS ---
<Statement entered by Chelle Schwartz MD - 10/16/25 12:53> I personally examined the patient following angiogram patient's recovered well has a angioplasty stent placement of the LAD diagonal branch and angioplasty of the LAD itself clinically doing well no shortness of breath chest pain orthopnea PND continues to feel well over the last several hours. I evaluated patient with resident physician after the procedure continues to recover aspirin Plavix dual antiplatelet therapy will be given blood pressure control also important we will continue to monitor the patient evaluate the patient with resident physician agree with treatment plan recommendation as documented by Dr. Horvath PGY2 Documentation for date of: 10/14/25 Subjective Subjective Interval history: Patient examined at bedside. She is status post cath had 2 stents placed this morning. Denying any chest chest pain or shortness of breath. Groin site is clean, no bleeding noticed. Telemetry was reviewed heart rate 65?70, normal sinus rhythm. Blood pressure elevated 172/88, creatinine up trended 1.4. Start aspirin 81 mg daily and Plavix 75 mg tomorrow. The patient remained stable, cleared for discharge from cardiology standpoint. Follow-up outpatient. Exam Vital Signs Temp Pulse Resp BP Pulse Ox O2 Del Method 97.0 F 74 16 172/88 H 96 Room Air 10/14/25 12:15 10/14/25 12:47 10/14/25 12:15 10/14/25 12:47 10/14/25 12:15 10/14/25 11:57 Narrative Exam General: Alert and oriented x3. No acute distress, cooperative HEENT: NCAT, No JVD noted. Mucosa moist. Pupils are equal and reactive to light bilaterally Cardiovascular: Normal S1 and S2. Regular rate and rhythm. Respiratory: Lungs are clear to auscultation bilaterally. No wheezing or crackles heard. Abdomen: Soft, nontender, not distended, normal bowel sounds. Skin: Warm to touch, dry, no rashes note, bruisng noted throughout UE Musculoskeletal: No gross injuries. Able to move all 4 extremities. No pitting edema Neuro: Alert and oriented x3. No focal neuro deficits. Psych: Normal affect and mood Objective Labs 10/14/25 06:32 10/14/25 06:32 Labs: Laboratory Results - last 24 hr 10/13/25 10/14/25 10/14/25 22:18 06:32 09:08 WBC 5.7 D RBC 3.15 L Hgb 9.7 L Hct 30.1 L MCV 96 MCH 30.8 MCHC 32.2 RDW Std Deviation 56.5 H Plt Count 166 Neut % (Auto) 65 Lymph % (Auto) 21 [place] % (Auto) 11 Eos % (Auto) 3 Baso % (Auto) 0 Neut # (Auto) 3.7 Lymph # (Auto) 1.2 [place] # (Auto) 0.6 Eos # (Auto) 0.2 Baso # (Auto) 0.0 Immature Gran # (Auto) 0.01 H Absolute Nucleated RBC 0.00 Immature Gran % 0 Nucleated RBC % 0 PT 10.8 INR 1.0 APTT 51.8 H D 47.0 H Activated Clotting Time 297.0 H Sodium 137 Potassium 4.5 Chloride 105 Carbon Dioxide 23.4 Anion Gap 9 BUN 25 H Creatinine 1.4 H Estim Creat Clear Calc 22.2 L eGFR 38 L BUN/Creatinine Ratio 18 Glucose 82 Calculated Osmolality 277 Calcium 8.4 Corrected Calcium 9.1 Phosphorus 3.6 Magnesium 2.3 Total Bilirubin 0.7 AST 45 H ALT 21 Alkaline Phosphatase 75 D Total Protein 5.2 L Albumin 3.1 L Globulin 2.1 L Albumin/Globulin Ratio 1.5 Quality Measures Quality Measures VTE prophylaxis Advance care planning discussed with:: patient Assessment & Plan Assessment Current Active Medications: Generic Name Dose Route Start Last Admin Trade Name Freq PRN Reason Stop Dose Admin Acetaminophen 650 mg 10/12/25 21:14 Acetaminophen 325 Mg Tablet PO 11/11/25 21:13 Q6H PRN Fever >101.5 or pain 1-3 Aspirin 81 mg 10/13/25 09:00 10/14/25 08:01 Aspirin Ec 81 Mg Tabec PO 11/12/25 08:59 81 mg QDAY HAYLIE Administration Atorvastatin Calcium 80 mg 10/13/25 21:00 10/13/25 20:41 Atorvastatin Calcium 20 Mg Tablet PO 11/12/25 20:59 80 mg HS HAYLIE Administration Clopidogrel Bisulfate 75 mg 10/15/25 09:00 Clopidogrel Bisulfate 75 Mg Tablet PO 11/14/25 08:59 QDAY HAYLIE Heparin Sodium (Porcine) 5,000 unit 10/14/25 21:00 Heparin Sod Inj 5000 Unit/Ml Vial SC 10/28/25 20:59 Q12HR HAYLIE Levothyroxine Sodium 50 mcg 10/13/25 06:00 10/14/25 05:12 Levothyroxine Sodium 25 Mcg Tablet PO 11/12/25 05:59 50 mcg ACBR HAYLIE Administration Lorazepam 1 mg 10/12/25 21:26 Lorazepam 0.5 Mg Tablet PO 10/18/25 08:59 BID PRN Anxiety Metoprolol Succinate 100 mg 10/13/25 09:00 10/14/25 12:48 Metoprolol Succinate Xl 25 Mg Tabcr PO 11/12/25 08:59 Not Given QDAY HAYLIE Ondansetron HCl 4 mg 10/12/25 21:22 Ondansetron Inj 2 Mg/Ml Inj 2 Ml IVP 11/11/25 21:21 Q6H PRN NAUSEA OR VOMITING Protocol Sennosides 1 tab 10/13/25 00:35 Senna/Docusate Sod 1 Tab Tablet PO 11/12/25 00:34 QDAY PRN CONSTIPATION Protocol Valsartan 160 mg 10/13/25 09:00 10/14/25 12:47 Valsartan 80 Mg Tablet PO 11/12/25 08:59 160 mg QDAY HAYLIE Administration Plan Patient is 80 yr female with PMH of hypertension, CAD s/p PCI, renal cell carcinoma status post right nephrectomy, stage IV metastatic disease following with heme oncologist, Dr. Hickman in [place], CKD following with Dr Solares, anemia presented to ED 10/12. She was sent by PCP after outpatient visit showed elevated blood pressure. Cardiology consulted for elevated troponins. #NSTEMI, type I #History of CAD status post stents x 2 #s/p stent 10/14 Patient presented without any symptoms but was incidentally found to have elevated troponins on ED evaluation. She does endorse SOB at times such as when washing dishes. Patient does have a history of CAD status post stents x 2. Patient follows hearing aid repairer Dr. Schwartz in [place] and takes aspirin 81 mg nightly at home. Troponin initially 0.203, delta 2.528. Now 1.84. 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 The patient's management plan was discussed with my attending physician Dr. Schwartz. Mishel Horvath, PGY-2
[2025-10-14] MEDS: METOPROLOL SUCCINATE XL 25 MG TABCR 100 MG PO (16:49)
--- NOTE | 2025-10-14 17:50 | PC.NURSE ---
Informed Dr Estrada of pts BP of 176/99 HR 84 1 hr post metoprolol PO 100 mg. He stated he would put in orders.
[2025-10-14] MEDS: NIFEdipine XL 30 MG TABCR 60 MG PO (18:02)
[2025-10-14] MEDS: ATORVASTATIN CALCIUM 20 MG TABLET 80 MG PO (20:24)
[2025-10-14] MEDS: HEPARIN SOD INJ 5000 UNIT/ML VIAL SC (20:27)
[2025-10-15] VITALS (13 sets, daily range): BP systolic 124–177; BP diastolic 57–96; PULSE 64–97; RESP 13–97; TEMP 36–37.2; O2SAT 96–98; BMI 20.9
[2025-10-15] MEDS: SENNA/DOCUSATE SOD 1 TAB TABLET PO (00:44)
[2025-10-15] MEDS: LEVOTHYROXINE SODIUM 25 MCG TABLET 50 MCG PO (05:16)
[2025-10-15] MEDS: POLYETHYLENE GLYCOL 17 GM PACKET PO (05:44)
[2025-10-15 06:09] LABS: Basophils # (Auto) 0.0 Thou/mm3 (0.0-0.2); Basophils % (Auto) 0 % (0-2.5); Eosinophils # (Auto) 0.1 Thou/mm3 (0.0-0.5); Eosinophils % (Auto) 2 % (0-10); Hematocrit 35.3 % (36.0-46.0); Hemoglobin 11.6 g/dL (12.0-16.0); Immature Granulocytes Auto 0.01 Thou/mm3 (0.00-0.00); Lymphocytes # (Auto) 0.9 Thou/mm3 (1.0-4.8); Lymphocytes % (Auto) 12 % (10-50); Mean Corpuscular HGB Conc 32.9 g/dl (31.0-37.0); Mean Corpuscular Hemoglobin 31.1 pg (25.0-35.0); Mean Corpuscular Volume 95 fL (80-100); Monocytes # (Auto) 0.7 Thou/mm3 (0.0-0.8); Monocytes % (Auto) 9 % (0-12); Neutrophils # (Auto) 5.8 Thou/mm3 (1.8-7.7); Neutrophils % (Auto) 77 % (37-80); Nucleated Red Blood Cell # 0.00 Thou/mm3 (0.00-0.00); Nucleated Red Blood Cell % 0 /100 WBC (0); Platelet Count 183 Thou/mm3 (140-440); RDW Standard Deviation 55.0 fL (36.4-46.3); Red Blood Count 3.73 Miln/mm3 (4.00-5.20); White Blood Count 7.6 Thou/mm3 (3.6-11.0)
[2025-10-15 06:26] LABS: INR 1.0 (0.9-1.3); Partial Thromboplastin Time 28.9 Seconds (22.0-36.0); Prothrombin Time 10.3 Seconds (9.0-12.2)
[2025-10-15 07:08] LABS: Alanine Aminotransferase 33 U/L (10-49); Albumin, Serum 3.7 gm/dL (3.4-4.8); Albumin/Globulin Ratio 1.5 (1.2-2.2); Alkaline Phosphatase 94 U/L (46-116); Anion Gap 12 (7-16); Aspartate Amino Transferase 99 U/L (0-34); BUN/Creatinine Ratio 14 Ratio (12-20); Bilirubin,Total 0.7 mg/dL (0.3-1.2); Blood Urea Nitrogen 17 mg/dL (9-23); Calcium 8.8 mg/dL (8.3-10.6); Calcium (Corrected) 9.0 mg/dL (8.5-10.1); Carbon Dioxide 19.9 mMol/L (20.0-31.0); Chloride 99 mMol/L (98-107); Creatinine (Component) 1.2 mg/dL (0.6-1.3); Estimated Creatinine Clearance 27.7 mL/min (>60); Globulin 2.5 gm/dL (2.3-3.5); Glucose 124 mg/dL (74-106); Magnesium 2.1 mg/dL (1.6-2.6); Osmolality,Calculated 265 (275-295); Phosphorous 3.3 mg/dL (2.4-5.1); Potassium 4.4 mMol/L (3.4-5.1); Sodium 131 mMol/L (136-145); Total Protein 6.2 gm/dL (5.7-8.2); eGFR 45 See Note
[2025-10-15] MEDS: ONDANSETRON INJ 2 MG/ML INJ 2 ML 4 MG IVP (08:05)
[2025-10-15] MEDS: METOPROLOL SUCCINATE XL 25 MG TABCR 100 MG PO (08:06)
[2025-10-15] MEDS: HEPARIN SOD INJ 5000 UNIT/ML VIAL SC ×2 (08:06→20:29)
[2025-10-15] MEDS: CLOPIDOGREL BISULFATE 75 MG TABLET PO (08:07)
[2025-10-15] MEDS: ASPIRIN EC 81 MG TABEC PO (08:07)
[2025-10-15] MEDS: VALSARTAN 80 MG TABLET 160 MG PO ×2 (08:07→20:30)
--- NOTE | 2025-10-15 12:02 | ESOP_ITS ---
RE: HERIBERTO BAH : 1945 DATE OF OPERATION: 10/14/25 PROCEDURES PERFORMED: 1. Diagnostic left heart cardiac catheterization, selective coronary angiogram, left ventriculogram, CPT 34459. 2. Complex PCI stent placement of the mid left anterior descending artery, placement of a drug-eluting stent 2.5 x 28 mm Razo Xience drug-eluting stent placed. Pre- procedure stenosis 90%, postprocedure 0%. 3. Additional vessel PTCA angioplasty of the mid and distal left anterior descending artery, side branch angioplasty with balloon angioplasty, CPT code 07735. 4. Conscious sedation, 1 hour duration. 5. Ultrasound-guided access to right femoral artery. 6. Iliofemoral angiogram followed by Angio-Seal deployment. DIAGNOSES: 1. Coronary artery disease status post multivessel stent placement. 2. Acute non-ST segment elevation myocardial infarction. 3. Recurrent chest pain. HISTORY AND INDICATIONS: Patient is an 80-year-old female with history of CAD, status post multivessel stent placement in left anterior descending artery, circumflex artery in the past during her last visit. She came to the hospital with severe shortness of breath and found to have elevated systolic blood pressure 200 plus. Troponin went up to 2 and came down. Continued to have some shortness of breath. EKG showed nonspecific changes and there were ST elevations in aVR. Hence, diagnostic right and left heart cardiac catheterization and coronary angiogram was recommended, and possible coronary intervention, class 1 indication. DESCRIPTION OF PROCEDURE: Patient brought to cardiac laborer cement gun placing. She was given 2 mg Versed, 50 mcg of fentanyl for sedation. Right femoral approach was taken. Right femoral artery cannulated by micropuncture technique. A 5-Mosotho sheath was initially introduced. Diagnostic right and left coronary angiogram, left heart catheterization, left ventriculogram performed by a 5-Mosotho FR4 and FL4 diagnostic catheters. Patient tolerated the diagnostic procedure with no complications. Coronary angiogram showed following findings: Right coronary angiogram showed no significant stenosis. There was [id number] plaque and 50-60% stenosis in mid right coronary artery. Left coronary system: Left main coronary is normal. Left anterior descending artery showed a stent in the proximal segment, which is patent. There is evidence of complex bifurcation lesion of 90% stenosis in mid left anterior descending artery involving the origin of the mid and distal left anterior descending artery and a large diagonal branch, both are equal sized branches. Circumflex artery is large and showed evidence of stent in the obtuse marginal branch, which is patent. There is mild disease distal to that. Left ventricular pressure recorded to be 116/5. EDP was 8. Aortic pressure 116/80. No gradient across the aortic valve. Left ventriculogram showed evidence of mild anterolateral hypokinesis, ejection fraction 55%. Following coronary angiogram diagnostic procedure, PCI was undertaken. Patient was given heparin, total of 3500 units. ACT is 290. Patient was given aspirin and Plavix 300 mg loading dose. PCI was undertaken. A 6-Mosotho sheath was introduced and a 6-Mosotho JL4 guiding catheter was used to cannulate the left main coronary artery. A 0.014 Runthrough guidewire was used to cross the lesion successfully in the diagonal branch and a Manager Of Care 50 guidewire was placed in the left anterior descending artery. Double wire technique was used. Predilation of both left anterior descending artery and large diagonal branches was also performed using a 2.5 mm balloon. Subsequently, 2.5 x 28 mm drug-eluting Razo Xience stent was deployed in the mid left anterior descending artery into the diagonal branch of left anterior descending artery. Manager Of Care 50 guidewire was used to cross the lesion in the left anterior descending artery mid and distal segment and initially 1.5 x 6 mm [place]u balloon was used to cross the stent and subsequently 2.0 x 12 mm balloon was then used to dilate aggressively the left anterior descending artery with excellent distal flow, no residual stenosis. Final angiogram showed widely patent left anterior descending artery and diagonal branches with no residual stenosis. Iliofemoral angiogram performed. Angio-Seal 6-Mosotho was deployed successfully. SUMMARY OF FINDINGS AND SUGGESTIONS: Consistent with complex multivessel CAD with bifurcation lesion involving mid left anterior descending artery and distal left anterior descending artery, underwent successful stent placement to mid and distal left anterior descending artery as well as angioplasty of the mid left anterior descending artery. No complications. Estimated blood loss none. Plan will be to continue aspirin and Plavix and probably discharge home in 1-2 days depending on the blood pressure reading. We should aggressively manage her blood pressure, antihypertensive drug therapy. We will continue the statin therapy. Patient is being given metoprolol succinate 100 mg daily for hypertension along with nifedipine, which will be continued, and valsartan will be also continued, adjust the dose as tolerated. DT: 11:36:02 TT: 12:01:00 Ref: [id number] - TID: [id number]
--- NOTE | 2025-10-15 12:51 | PC.NURSE ---
Dr. Zavala notified pt is supposed to be discharged but bp is still elevated, 176/74. Dr. Zavala will order medication IV and hold discharge for the moment.
[2025-10-15] MEDS: hydrALAZINE INJ 20 MG/ML VIAL 10 MG IVP (13:05)
--- NOTE | 2025-10-15 14:35 | PC.SS ---
Rounding Note: If blood pressure can be controlled then patient will d/c home today.
[2025-10-15] MEDS: PANTOPRAZOLE 40 MG TABLET PO (14:40)
[2025-10-15] MEDS: SIMETHICONE 80 MG CHEW PO (14:40)
--- NOTE | 2025-10-15 15:11 | ESPR_ITS ---
RE: HERIBERTO BAH : 1945 DATE OF SERVICE: 10/15/25 SUBJECTIVE: Patient is an 80-year-old lady with history of longstanding CAD, hypertension, admitted to the hospital with shortness of breath, angina equivalent symptoms, and troponin elevation up to 2. Underwent coronary angiogram cardiac evaluation, showed complex LAD bifurcation lesion, underwent angioplasty and stent placement to diagonal branch into the left anterior descending artery and angioplasty of the mid and distal LAD successfully of the bifurcation lesion with excellent results, following which no complications. She is feeling well. No shortness of breath or chest pain. Her blood pressure is still quite high and we are waiting to get it controlled before discharging her. She also did not ambulate. She is not having any chest pain or shortness of breath. OBJECTIVE: VITAL SIGNS: Her blood pressure now is much better, 124/57, heart rate is 90, respirations 16, temperature normal. Saturating well. NECK: Supple. No JVD. LUNGS: Decreased breath sounds. No rales or rhonchi. CARDIAC: Heart sounds regular. ABDOMEN: Thin and soft. EXTREMITIES: No edema. LABORATORY DATA: Showed the hemoglobin is better at 11.6 and hematocrit 35. Chemistry panel showed sodium slightly low 131, potassium is 4.4. BUN and creatinine 17 and 1.2, creatinine clearance around 45. IMPRESSION: 1. Status post acute [id number] elevation myocardial infarction. 2. Complex percutaneous coronary intervention and stent placement to LAD bifurcation lesion. 3. Hypertension, uncontrolled. 4. Mild hyponatremia. RECOMMENDATIONS: Continue the valsartan, increase to 160 b.i.d. and discontinue hydralazine and start on amlodipine 5 mg daily. Continue 100 mg metoprolol succinate daily. Physical therapy. Discharge home tomorrow if she is feeling well. She will be continued on aspirin and Plavix for dual antiplatelet drug therapy for next 1 year. DT: 14:49:59 TT: 15:10:00 Ref: [id number] - TID: [id number]
--- NOTE | 2025-10-15 15:17 | ESPR_ITS ---
<Statement entered by Reinaldo Saini MD - 10/15/25 16:19> No acute overnight events. Seen and examined at bedside and was resting comfortably in bed. However, she burped and had small volume, nonbloody emesis that improved with antiemetic. Per report, cath revealed complex, multivesssel CAD with bifurcation lesion of left mid LAD and distal LAD and underwent successful stent to mid and distal LAD, in addition to angioplasty of mid LAD without complications. Will continue ASA/plavix with strict blood pressure control. Currently on amlodipine 5 mg daily, metoprolol succinate 100 mg daily, and valsartan 160 mg BID and was also given nifedipine overnight. Per cardiology recommendations, will monitor for one more night. ----- Note reviewed and agree with care plan as documented. Please refer to the note below for further details. Plan discussed with attending physician Dr. Sally Saini MD PGY-2 Internal Medicine Documentation for date of: 10/15/25 Subjective Subjective Interval history: Patient feeling nauseous and vomiting overnight and in the morning. Patient's blood pressure still not well controlled, 180s sbp; addressed and most recent now 124/57 Will continue to monitor her overnight. Exam Vital Signs Temp Pulse Resp BP Pulse Ox O2 Del Method 96.8 F 90 16 124/57 L 96 Room Air 10/15/25 12:00 10/15/25 14:40 10/15/25 12:00 10/15/25 14:40 10/15/25 12:00 10/15/25 12:00 Narrative Exam General: No acute distress; A&Ox3 Skin: Warm, dry, intact, no obvious rash. HENT: NCAT, EOMI/PERRL, not icteric. External ears normal. No rhinorrhea. Moist mucous membranes Cardiovascular: Regular rate and rhythm, no murmur, +S1/S2. Respiratory: Lungs CTAB GI: Soft, nontender, non-distended. No guarding or rebound tenderness. : No suprapubic tenderness. No flank tenderness bilaterally. Extremities: no edema, no cyanosis, no clubbing. Extremity pulses present Neuro: Grossly nonfocal. Moving all 4 extremities. CN not formally tested but appear grossly intact. Psychiatric: Cooperative, appropriate affect. Objective Labs 10/16/25 05:15 10/16/25 05:15 Labs: Laboratory Results - last 24 hr 12/11/25 05:35 WBC 7.6 RBC 3.73 L Hgb 11.6 L Hct 35.3 L MCV 95 MCH 31.1 MCHC 32.9 RDW Std Deviation 55.0 H Plt Count 183 Neut % (Auto) 77 Lymph % (Auto) 12 [place] % (Auto) 9 Eos % (Auto) 2 Baso % (Auto) 0 Neut # (Auto) 5.8 Lymph # (Auto) 0.9 L [place] # (Auto) 0.7 Eos # (Auto) 0.1 Baso # (Auto) 0.0 Immature Gran # (Auto) 0.01 H Absolute Nucleated RBC 0.00 Immature Gran % 0 Nucleated RBC % 0 PT 10.3 INR 1.0 APTT 28.9 D Sodium 131 L Potassium 4.4 Chloride 99 Carbon Dioxide 19.9 L Anion Gap 12 BUN 17 Creatinine 1.2 Estim Creat Clear Calc 27.7 L eGFR 45 L BUN/Creatinine Ratio 14 Glucose 124 H D Calculated Osmolality 265 L Calcium 8.8 Corrected Calcium 9.0 Phosphorus 3.3 Magnesium 2.1 Total Bilirubin 0.7 AST 99 H ALT 33 Alkaline Phosphatase 94 D Total Protein 6.2 Albumin 3.7 D Globulin 2.5 Albumin/Globulin Ratio 1.5 Quality Measures Quality Measures VTE prophylaxis Advance care planning discussed with:: patient Assessment & Plan Assessment Current Active Medications: Generic Name Dose Route Start Last Admin Trade Name Freq PRN Reason Stop Dose Admin Acetaminophen 650 mg 10/12/25 21:14 Acetaminophen 325 Mg Tablet PO 11/11/25 21:13 Q6H PRN Fever >101.5 or pain 1-3 Amlodipine Besylate 5 mg 10/15/25 14:00 10/15/25 14:40 Amlodipine Besylate 5 Mg Tablet PO 11/14/25 13:59 5 mg QDAY HAYLIE Administration Aspirin 81 mg 10/13/25 09:00 10/15/25 08:07 Aspirin Ec 81 Mg Tabec PO 11/12/25 08:59 81 mg QDAY HAYLIE Administration Atorvastatin Calcium 80 mg 10/13/25 21:00 10/14/25 20:24 Atorvastatin Calcium 20 Mg Tablet PO 11/12/25 20:59 80 mg HS HAYLIE Administration Clopidogrel Bisulfate 75 mg 10/15/25 09:00 10/15/25 08:07 Clopidogrel Bisulfate 75 Mg Tablet PO 11/14/25 08:59 75 mg QDAY HAYLIE Administration Heparin Sodium (Porcine) 5,000 unit 10/14/25 21:00 10/15/25 08:06 Heparin Sod Inj 5000 Unit/Ml Vial SC 10/28/25 20:59 5,000 unit Q12HR HAYLIE Administration Levothyroxine Sodium 50 mcg 10/13/25 06:00 10/15/25 05:16 Levothyroxine Sodium 25 Mcg Tablet PO 11/12/25 05:59 50 mcg ACBR HAYLIE Administration Lorazepam 1 mg 10/12/25 21:26 Lorazepam 0.5 Mg Tablet PO 10/18/25 08:59 BID PRN Anxiety Metoprolol Succinate 100 mg 10/13/25 09:00 10/15/25 08:06 Metoprolol Succinate Xl 25 Mg Tabcr PO 11/12/25 08:59 100 mg QDAY HAYLIE Administration Ondansetron HCl 4 mg 10/12/25 21:22 10/15/25 08:05 Ondansetron Inj 2 Mg/Ml Inj 2 Ml IVP 11/11/25 21:21 4 mg Q6H PRN Administration NAUSEA OR VOMITING Protocol Pantoprazole Sodium 40 mg 10/15/25 14:00 10/15/25 14:40 Pantoprazole 40 Mg Tablet PO 11/14/25 13:59 40 mg QDAY HAYLIE Administration Sennosides 1 tab 10/13/25 00:35 10/15/25 00:44 Senna/Docusate Sod 1 Tab Tablet PO 11/12/25 00:34 1 tab QDAY PRN Administration CONSTIPATION Protocol Simethicone 80 mg 10/15/25 13:57 10/15/25 14:40 Simethicone 80 Mg Chew PO 11/14/25 13:56 80 mg QID PRN Administration GAS Valsartan 160 mg 10/15/25 21:00 Valsartan 80 Mg Tablet PO 11/14/25 20:59 BID HAYLIE Plan This patient is an 80-year-old female with a history of hypertension, CAD status post stents x 2 (patient follows with Dr. Schwartz in [place]), renal cell carcinoma status post right nephrectomy with mets to right scapula/ribs/anterior iliac bones (patient follows Dr. Solares for nephrology and Dr. Hickman in [place] for hematology oncology) who presents to [facility] ED after being told that she had very high blood pressure by her PCP. Patient was admitted for management of NSTEMI; s/p heart cath with 2 stents placed #NSTEMI type I #History of CAD status post stents x 2 Patient presented without any symptoms but was incidentally found to have elevated troponins on ED evaluation. Patient does have a history of CAD status post stents x 2. Patient follows financial sales assistant Dr. Schwartz in [place] and takes aspirin 81 mg nightly at home. Diagnostic: Troponin initially 0.203, which increased to 1.606, and further increased to 2.528 Initial EKG on 10/[address] elevations in aVR, subsequent EKG similar to later on 10/12 unremarkable Loading Aspirin/Atorvastatin given in ED; Heparin drip DC'd mini lab operator completed 10/14: showed complex multivessel CAD, 2 stents placed -Cardiology consulted, appreciate recommendations -aspirin 81 mg daily -Plavix 75 mg po qd -Keep potassium above 4 and magnesium above 2 -Atorvastatin 80 mg po q hs -Metoprolol succ 100 mg po qd -Will hold the patient's home Cabometyx 20 mg daily until cleared by cardiology #Hypertensive emergency, improved #History of hypertension, primary Patient does have a history of hypertension and is on multiple antihypertensives at home. The patient does note that over the past week, ever since she hurt her hips, she has been having elevated blood pressure readings at home. Patient was told to seek care at [facility] ED after her PCP noted a SBP over 200 in the clinic. Patient received clonidine 0.3 mg and metoprolol tartrate 50 mg in ED -metoprolol succinate 100 mg daily -amlodipine 5 mg po daily -valsartan 160 mg BID #CKD stage IIIb-IV Patient has a history of CKD stage IV and follows Dr Solares, nephrology, outpatient. 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 The patient does follow her licensed physical therapist Dr. Solares in [place] for management of this condition. Previous imaging has identified metastases to right scapula, ribs, and anterior iliac bones. Patient does follow Dr. Hickman in [place] for hematology oncology and only takes Cabometyx for management of this condition. Patient episode stable for several years and has not received any recent chemotherapy/immunotherapy infusion or radiation therapy treatments. Diagnostic: Chest x-ray on 10/12 does note fairly large expansile lytic lesion in the right scapula as the same size and appearance as identified on CT chest on Treatment: Will hold the patient's home Cabometyx 20 mg daily until cleared by cardiology as this medication has patient to increase incidence of thrombotic events and hypertension/hypertensive crisis per FDA prescribing information warnings and precautions (5.3 and 5.4) Patient to follow-up outpatient #Left lower lobe nodular opacity As noted on chest x-ray 10/12. Patient states that she is aware that she has a lung spot which has been present for months and the patient was told that it has been stable so far and we will plan to have less frequent imaging outpatient. Treatment: Patient to follow-up outpatient #Elevated AST AST noted to be elevated on admission, patient does seem to have chronically elevated AST without elevations of other LFTs. Possibly secondary to Cabometyx as it has been shown to increase LFTs. Treatment: Patient to follow-up outpatient #Degenerative disc disease, C5-C6, C6-C7 with #Bilateral neural foraminal stenosis As found on CT cervical spine 10/12. Patient did not complain of any neck pain on examination prior to admission. Patient does not have any new onset weakness or extremity pain suggestive of acute neural foraminal stenosis requiring neurosurgical intervention. Treatment: Patient to follow-up outpatient #History of hypothyroidism The patient takes levothyroxine at home for management of hypothyroidism, but notes that she feels cold intolerance constantly. The patient is not sure when the last time she has had her TSH evaluated but notes that she has not had a change in the dosage of her home levothyroxine for about two years. Diagnostic: On admission, TSH 6.12, free T4 1.60, and free T3 3.3 Treatment: Levothyroxine 50 mcg ACBR (patient takes 50 mcg every other day at home) Disposition: Tele DVT Prophylaxis: Heparin GI Prophylaxis: protonix 40 mg po qd Bowel: Senokot PRN Diet: Cardiac Code Status: FULL Reason for Hospitalization: NSTEMI Patient plan of care was discussed with the attending physician, Dr. Zavala & senior resident Dr. Chris Mosqueda MD PGY-1 Attending Provider Attestation/Addendum I have examined the patient, reviewed labs and imaging findings, discussed the case with the resident(s), and reviewed entered orders. I agree with the plan of care as outlined in this note. Dr. Sally MD
[2025-10-15] MEDS: ATORVASTATIN CALCIUM 20 MG TABLET 80 MG PO (20:30)
[2025-10-16] VITALS (8 sets, daily range): BP systolic 129–142; BP diastolic 63–72; PULSE 59–75; RESP 15–97; TEMP 36.1–36.6; O2SAT 97; BMI 21.6
[2025-10-16] MEDS: LEVOTHYROXINE SODIUM 25 MCG TABLET 50 MCG PO (05:26)
[2025-10-16 05:52] LABS: Basophils # (Auto) 0.0 Thou/mm3 (0.0-0.2); Basophils % (Auto) 0 % (0-2.5); Eosinophils # (Auto) 0.0 Thou/mm3 (0.0-0.5); Eosinophils % (Auto) 0 % (0-10); Hematocrit 30.6 % (36.0-46.0); Hemoglobin 10.1 g/dL (12.0-16.0); Immature Granulocytes Auto 0.03 Thou/mm3 (0.00-0.00); Lymphocytes # (Auto) 0.9 Thou/mm3 (1.0-4.8); Lymphocytes % (Auto) 9 % (10-50); Mean Corpuscular HGB Conc 33.0 g/dl (31.0-37.0); Mean Corpuscular Hemoglobin 30.4 pg (25.0-35.0); Mean Corpuscular Volume 92 fL (80-100); Monocytes # (Auto) 0.8 Thou/mm3 (0.0-0.8); Monocytes % (Auto) 7 % (0-12); Neutrophils # (Auto) 8.5 Thou/mm3 (1.8-7.7); Neutrophils % (Auto) 84 % (37-80); Nucleated Red Blood Cell # 0.00 Thou/mm3 (0.00-0.00); Nucleated Red Blood Cell % 0 /100 WBC (0); Platelet Count 178 Thou/mm3 (140-440); RDW Standard Deviation 53.1 fL (36.4-46.3); Red Blood Count 3.32 Miln/mm3 (4.00-5.20); White Blood Count 10.1 Thou/mm3 (3.6-11.0)
[2025-10-16 06:14] LABS: INR 1.0 (0.9-1.3); Partial Thromboplastin Time 49.0 Seconds (22.0-36.0); Prothrombin Time 10.6 Seconds (9.0-12.2)
[2025-10-16 06:27] LABS: Alanine Aminotransferase 33 U/L (10-49); Albumin, Serum 3.1 gm/dL (3.4-4.8); Albumin/Globulin Ratio 1.4 (1.2-2.2); Alkaline Phosphatase 82 U/L (46-116); Anion Gap 11 (7-16); Aspartate Amino Transferase 88 U/L (0-34); BUN/Creatinine Ratio 17 Ratio (12-20); Bilirubin,Total 0.6 mg/dL (0.3-1.2); Blood Urea Nitrogen 27 mg/dL (9-23); Calcium 8.3 mg/dL (8.3-10.6); Calcium (Corrected) 9.0 mg/dL (8.5-10.1); Carbon Dioxide 19.6 mMol/L (20.0-31.0); Chloride 98 mMol/L (98-107); Creatinine (Component) 1.6 mg/dL (0.6-1.3); Estimated Creatinine Clearance 20.8 mL/min (>60); Globulin 2.2 gm/dL (2.3-3.5); Glucose 97 mg/dL (74-106); Magnesium 2.2 mg/dL (1.6-2.6); Osmolality,Calculated 264 (275-295); Phosphorous 3.2 mg/dL (2.4-5.1); Potassium 4.6 mMol/L (3.4-5.1); Sodium 129 mMol/L (136-145); Total Protein 5.3 gm/dL (5.7-8.2); eGFR 32 See Note
[2025-10-16] MEDS: VALSARTAN 80 MG TABLET 160 MG PO (08:46)
[2025-10-16] MEDS: METOPROLOL SUCCINATE XL 25 MG TABCR 100 MG PO (08:47)
[2025-10-16] MEDS: PANTOPRAZOLE 40 MG TABLET PO (08:48)
[2025-10-16] MEDS: CLOPIDOGREL BISULFATE 75 MG TABLET PO (08:48)
[2025-10-16] MEDS: ASPIRIN EC 81 MG TABEC PO (08:48)
[2025-10-16] MEDS: HEPARIN SOD INJ 5000 UNIT/ML VIAL SC (08:48)
--- NOTE | 2025-10-16 10:53 | ESDS_ITS ---
Planned Discharge Date 10/16/25 DS: Providers Provider Date of admission: 10/12/25 21:09 Primary care physician: Physician No Primary/Family Admitting Provider: Gio Bragg MD Attending Provider on Admission: Gio Bragg MD Consults: 10/12/25 21:44 Consult to Cardiology Routine Comment: Consulting Provider: Chelle Schwartz 10/13/25 03:05 PT [Referral Physical Therapy] Routine Comment: Physician Instructions: Attending Provider on DC: Glenn Zavala MD Discharging Provider: Glenn Zavala MD Diagnosis Problem List Completed Was Problem List Reviewed/Reconciled?: Yes Hospital Course - Hospitalist Hospital Course Hospital course: This patient is an 80-year-old female with a history of hypertension, CAD status post stents x 2 (patient follows with Dr. Schwartz in [place]), renal cell carcinoma status post right nephrectomy with mets to right scapula/ribs/anterior iliac bones (patient follows Dr. Solares for nephrology and Dr. Hickman in [place] for hematology oncology) who presents to [facility] ED after being told that she had very high blood pressure by her PCP. Patient was admitted to the hospital for NSTEMI type I. Troponin peaked at 2.528. EKG was significant for nonspecific ST changes. Patient was started on heparin GTT, aspirin, and Plavix. Patient underwent cardiac catheterization with in-house cardiology Dr. Schwartz which showed complex multivessel CAD, 2 stents placed. Patient will be discharged with aspirin 81 mg p.o. daily, clopidogrel 75 mg p.o. daily, and atorvastatin 80 mg p.o. nightly. Patient also suspected having hypertensive emergency on admission with systolic blood pressure into the 200s. Possibly related to Cabometyx which we will place on hold for now until evaluated by cardiology outpatient. Patient will be discharged with metoprolol succinate 100 mg p.o. daily, valsartan 160 mg p.o. twice daily, Norvasc 5 mg p.o. daily, and Bumex as needed for lower extremity swelling. Patient encouraged to purchase blood pressure cuff and monitor blood pressure at home. Patient's underlying CKD stage IIIb stayed stable throughout hospitalization. On day of discharge creatinine 1.4. Patient advised to follow-up with her test engineer outpatient and showed understanding. Patient advised to follow-up with oncology for renal cell carcinoma as Cabometyx currently on hold. Left lower lobe nodularity was noted on chest x-ray. Patient states that she is aware that she has a lung spot which has been present for months and the patient was told that it has been stable so far and we will plan to have less frequent imaging outpatient. Continue home levothyroxine at current dose. Patient is medically cleared for discharge today. She is advised to not lift any heavy objects and follow-up with cardiology within 7 days of discharge. Patient was also advised on strict return precautions and showed understanding. Patient will be discharged home. #NSTEMI type I #History of CAD status post stents x 2 Patient presented without any symptoms but was incidentally found to have elevated troponins on ED evaluation. Patient does have a history of CAD status post stents x 2. Patient follows maintenance team member Dr. Schwartz in [place] and takes aspirin 81 mg nightly at home. Diagnostic: Troponin initially 0.203, which increased to 1.606, and further increased to 2.528 Initial EKG on 10/[address] elevations in aVR, subsequent EKG similar to later on 10/12 unremarkable Loading Aspirin/Atorvastatin given in ED; Heparin drip DC'd engineering laboratory technician completed 10/14: showed complex multivessel CAD, 2 stents placed -Cardiology consulted, appreciate recommendations -aspirin 81 mg daily -Plavix 75 mg po qd -Keep potassium above 4 and magnesium above 2 -Atorvastatin 80 mg po q hs -Metoprolol succ 100 mg po qd -Will hold the patient's home Cabometyx 20 mg daily until cleared by cardiology #Hypertensive emergency, improved #History of hypertension, primary Patient does have a history of hypertension and is on multiple antihypertensives at home. The patient does note that over the past week, ever since she hurt her hips, she has been having elevated blood pressure readings at home. Patient was told to seek care at [facility] ED after her PCP noted a SBP over 200 in the clinic. Patient received clonidine 0.3 mg and metoprolol tartrate 50 mg in ED -metoprolol succinate 100 mg daily -amlodipine 5 mg po daily -valsartan 160 mg BID #CKD stage IIIb-IV Patient has a history of CKD stage IV and follows Dr Solares, nephrology, outpatient. 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 The patient does follow her test engineer Dr. Solares in [place] for management of this condition. Previous imaging has identified metastases to right scapula, ribs, and anterior iliac bones. Patient does follow Dr. Hickman in [place] for hematology oncology and only takes Cabometyx for management of this condition. Patient episode stable for several years and has not received any recent chemotherapy/immunotherapy infusion or radiation therapy treatments. Diagnostic: Chest x-ray on 10/12 does note fairly large expansile lytic lesion in the right scapula as the same size and appearance as identified on CT chest on Treatment: Will hold the patient's home Cabometyx 20 mg daily until cleared by cardiology as this medication has patient to increase incidence of thrombotic events and hypertension/hypertensive crisis per FDA prescribing information warnings and precautions (5.3 and 5.4) Patient to follow-up outpatient #Left lower lobe nodular opacity As noted on chest x-ray 10/12. Patient states that she is aware that she has a lung spot which has been present for months and the patient was told that it has been stable so far and we will plan to have less frequent imaging outpatient. Treatment: Patient to follow-up outpatient #Elevated AST AST noted to be elevated on admission, patient does seem to have chronically elevated AST without elevations of other LFTs. Possibly secondary to Cabometyx as it has been shown to increase LFTs. Treatment: Patient to follow-up outpatient #Degenerative disc disease, C5-C6, C6-C7 with #Bilateral neural foraminal stenosis As found on CT cervical spine 10/12. Patient did not complain of any neck pain on examination prior to admission. Patient does not have any new onset weakness or extremity pain suggestive of acute neural foraminal stenosis requiring neurosurgical intervention. Treatment: Patient to follow-up outpatient #History of hypothyroidism The patient takes levothyroxine at home for management of hypothyroidism, but notes that she feels cold intolerance constantly. The patient is not sure when the last time she has had her TSH evaluated but notes that she has not had a change in the dosage of her home levothyroxine for about two years. Diagnostic: On admission, TSH 6.12, free T4 1.60, and free T3 3.3 Treatment: Levothyroxine 50 mcg ACBR (patient takes 50 mcg every other day at home) Disposition: Tele DVT Prophylaxis: Heparin GI Prophylaxis: protonix 40 mg po qd Bowel: Senokot PRN Diet: Cardiac Code Status: FULL Reason for Hospitalization: NSTEMI Status at Discharge Overall status at discharge: patient is back to baseline Time Spent with Patient Time attestation: Total time spent providing and/or coordinating discharge services: Time spent: Greater than 30 minutes Discharge Results Labs Diagrams: 10/16/25 05:15 10/16/25 05:15 Labs: Short CBC 10/16/25 Range/Units 05:15 WBC 10.1 (3.6-11.0) Thou/mm3 Hgb 10.1 L (12.0-16.0) g/dL Hct 30.6 L (36.0-46.0) % Plt Count 178 (140-440) Thou/mm3 [facility] 10/16/25 05:15 Sodium 129 L Potassium 4.6 Chloride 98 Carbon Dioxide 19.6 L BUN 27 H Creatinine 1.6 H Glucose 97 Calcium 8.3 Liver Function 10/16/25 Range/Units 05:15 Total Bilirubin 0.6 (0.3-1.2) mg/dL AST 88 H (0-34) U/L ALT 33 (10-49) U/L Alkaline Phosphatase 82 (46-116) U/L Albumin 3.1 L D (3.4-4.8) gm/dL Exam Vital Signs Temp Pulse Resp BP Pulse Ox O2 Del Method 97.8 F 66 18 132/68 H 97 Room Air 10/16/25 08:00 10/16/25 08:47 10/16/25 08:00 10/16/25 08:47 10/16/25 08:00 10/16/25 08:00 Narrative General: No acute distress; A&Ox3 Skin: Warm, dry, intact, no obvious rash. HENT: NCAT, EOMI/PERRL, not icteric. External ears normal. No rhinorrhea. Moist mucous membranes Cardiovascular: Regular rate and rhythm, no murmur, +S1/S2. Respiratory: Lungs CTAB GI: Soft, nontender, non-distended. No guarding or rebound tenderness. : No suprapubic tenderness. No flank tenderness bilaterally. Extremities: no edema, no cyanosis, no clubbing. Extremity pulses present Neuro: Grossly nonfocal. Moving all 4 extremities. CN not formally tested but appear grossly intact. Psychiatric: Cooperative, appropriate affect. Discharge Plan Plan Patient Disposition: HOME (Self Care) Disposition Comment: Patient stable for discharge home Patient condition on transfer: Stable Care Plan Goals: - We prescribed you Plavix 75 mg. Take 1 per day - We prescribed you Lipitor 80 mg. Take 1 per day Discontinue hydralazine Take amlodipine 5 mg once daily Valsartan has increased to twice daily. take 1 pill in morning and 1 in evening - Follow up with cardiology outpatient in 1 week - Do not lift anything heavy - Continue cardiac diet ? Continue taking all other home medications as prescribed ? Follow-up with PCP within 1-2 weeks of discharge ? If you do not have a PCP, you can follow-[facility] at [facility] (you can call [phone] to make an appointment) ? Return to ED if symptoms worsen or recur Prescriptions/Referrals Prescriptions/Med Rec: New atorvastatin [Lipitor] 80 mg tablet 80 mg PO HS 30 Days Qty: 30 0RF clopidogrel 75 mg Tablet 75 mg PO QDAY 30 Days Qty: 30 0RF valsartan 160 mg tablet 160 mg PO BID 30 Days Qty: 60 0RF amlodipine 5 mg tablet 5 mg PO QDAY 30 Days Qty: 30 0RF Continued metoprolol succinate 100 mg tablet extended release 24 hr 100 mg PO QDAY aspirin 81 mg tablet,delayed release (DR/EC) 81 mg PO HS lorazepam 1 mg Tablet 1 mg PO BID PRN (Reason: Anxiety) levothyroxine 50 mcg Tablet 50 mcg PO EVERYOTHERDAY Rx Instructions: alternates taking 25 mcg one day and then 50 mcg the next day ferrous sulfate 325 mg (65 mg iron) tablet 325 mg PO HS Patient Comments: TAKE 1 TABLET BY MOUTH 3 TIMES A DAY bumetanide 2 mg tablet 1 mg PO DAILY PRN (Reason: edema) Patient Comments: TAKE 1/2 TABLET BY MOUTH EVERY DAY vitamin B complex Tablet 1 tab PO DAILY Held Cabometyx 20 mg Tablet 20 mg PO QDAY Hold Instructions: Hold until you follow-up with your cardiologists Rx Instructions: PATIENT STOPPED TAKING BECAUSE OF ANTIBIOTICS Discontinued ergocalciferol (vitamin D2) 400 unit Capsule 400 unit PO HS calcitriol 0.25 mcg Capsule See Rx Instructions .ROUTE .COMPLEX Rx Instructions: 0.25 mcg orally 3 times weekly valsartan 160 mg tablet 160 mg PO DAILY Patient Comments: TAKE 1 TABLET BY MOUTH ONCE DAILY hydralazine 25 mg tablet 25 mg PO BID Referrals: No Primary/Family,Physician [Primary Care Provider] Patient/Caregiver Discharge Instructions Discharge Activity: activity as tolerated Education Materials: Heart Attack Dc, Eating Heart-Healthy Foods, ED High Blood Pressure ... Print Language: Dominican Stand Alone Forms: Vivienne Award Info., Patient Portal Info Letter Discharge Order Discharge Orders: Discharge (Routine); Ordered 10/15/25 Ordered By: Reinaldo Saini Quality Discharge Quality Measures VTE prophylaxis
--- NOTE | 2025-10-16 12:32 | PC.SS ---
rounding note: Patient to d/c home today. No d/c needs.
== END 2025-10-16 13:29 | disposition home or self-care (01) | DRG 322 ==
LOC: SERX 21:29 → SERHOLD 22:04 → S2NX 22:42
PROVIDERS: Internal Medicine Cardiovascular Disease; Admitting Provider Student in an Organized Health Care Education/Training Program; Emergency Provider Emergency Medicine; Visit Provider Student in an Organized Health Care Education/Training Program
PROC: 4A023N7 Measurement of Cardiac Sampling and Pressure, Left Heart, Percutaneous Approach (ICD-10-PCS; principal; 2025-10-14 08:45)
DX: I21.4 Non-ST elevation (NSTEMI) myocardial infarction (principal); C64.9 Malignant neoplasm of unspecified kidney, except renal pelvis; N18.4 Chronic kidney disease, stage 4 (severe); E87.1 Hypo-osmolality and hyponatremia; K21.9 Gastro-esophageal reflux disease without esophagitis; E03.9 Hypothyroidism, unspecified; M50.322 Other cervical disc degeneration at C5-C6 level; I25.10 Atherosclerotic heart disease of native coronary artery without angina pectoris; Z95.5 Presence of coronary angioplasty implant and graft; M48.02 Spinal stenosis, cervical region; M50.323 Other cervical disc degeneration at C6-C7 level; I16.0 Hypertensive urgency; I12.9 Hypertensive chronic kidney disease with stage 1 through stage 4 chronic kidney disease, or unspecified chronic kidney disease; Z90.5 Acquired absence of kidney; Z79.02 Long term (current) use of antithrombotics/antiplatelets; Z79.82 Long term (current) use of aspirin; Z79.890 Hormone replacement therapy; Z79.899 Other long term (current) drug therapy; Z88.8 Allergy status to other drugs, medicaments and biological substances; Z90.710 Acquired absence of both cervix and uterus
CPT/HCPCS: 36415; 70450; 71045; 72125; 80053; 80061; 80069; 81001; 82248; 83036; 83735; 84100; 84439; 84443; 84481; 84484; 85025; 85347; 85379; 85610; 85730; 93005; 93306; 97162; 99283; J0153; J0168; J0282; J0360; J0461; J1643; J1644; J2250; J2312; J2371; J2405; J3010; J3475; J3490; J7030; A9270; J1920; J2305